=== PATIENT | female | born 1950 | race Caucasian/White ===

== ENCOUNTER → 2016-06-15 | Day surgery (SDC) | payer MEDICARE ==
[~2016-06-15] MED LIST: BACITRACIN OINT 1 EACH PACKET TOPICAL ONE; LIDOCAINE 1% INJ 10MG/ML (20 ML MDV) ONE; LIDOCAINE 1%-EPI 1:100,000 20 ML VIAL ONE; SODIUM BICARB 4% 5 ML VIAL (0.48 MEQ/ML) ONE
--- NOTE | 2016-06-15 13:19 | USB ---
EXAMINATION TYPE: US biopsy breast VAD LT DATE OF EXAM: 06/15/2016 1:14 PM CLINICAL HISTORY: US. Abnormal ultrasound TECHNIQUE: Ultrasound guided core biopsy of left breast. COMPARISON: Previous ultrasound dated 05/18/2016. FINDINGS: The procedure of ultrasound guided core biopsy was explained to the patient. Benefits, alternatives, and risks were discussed. An informed consent was then obtained. The patient was placed in supine positioning for imaging and for the procedure. The overlying skin was prepped and draped in usual sterile fashion. Lidocaine buffered with bicarbonate with and without epinephrine was used as anesthetic into the skin and subcutaneous tissue up to area of concern in the 3: 00 position of the left breast. Under ultrasound guidance, a 12-gauge vacuum assisted biopsy gun device was used to obtain 5 core samples. Following this, a biopsy clip was left in lesion. The patient tolerated the procedure well without any immediate complication. The patient was kept in the radiology department for short stay after the procedure and then discharged home in stable condition. Estimated blood loss was less than 1 cc. IMPRESSION: Successful, uncomplicated ultrasound guided core biopsy of area of concern in the left breast, full pathology results to follow. Pathology Results: Benign BREAST, LEFT, CORE BIOPSY: BENIGN BREAST WITH FIBROCYSTIC CHANGES INCLUDING FIBROSIS AND SMALL CYSTS. SEE NOTE. Recommendation Follow up ultrasound of the left breast in 6 months. MTDD
== END ==
LOC: RADUSWWP 12:07
PROVIDERS: ATTEND Surgery
DX: N63 Unspecified lump in breast (principal); N60.32 Fibrosclerosis of left breast; N64.89 Other specified disorders of breast; Z88.0 Allergy status to penicillin
CPT/HCPCS: 88305; 19083; A4648; J2001

== ENCOUNTER → 2016-12-21 | Outpatient (CLI) | payer MEDICARE ==
--- NOTE | 2016-12-21 14:13 | MM ---
Reason for exam: follow-up at short interval from prior study. Last mammogram was performed 7 months ago. History: Patient is postmenopausal. Family history of breast cancer in paternal cousin at age 35. Benign US biopsy breast VAD LT of the left breast, June 15, 2016. Benign excisional biopsy of the left breast, October 02, 2006. Ultrasound-guided core biopsy of the left breast, April 30, 2002. Benign excisional biopsy of the left breast, June 02, 2000. Cyst aspiration of the left breast. 2 cyst aspirations of the right breast. Took estrogen for 7 years beginning at age 51. Took progesterone for 7 years beginning at age 51. Physical Findings: Nurse Summary: 1 x 2cm nodule in the left breast at scar (nurse ts). MG 3D Diag Mammo W/Cad LT CC and MLO view(s) were taken of the left breast. Prior study comparison: May 18, 2016, left breast MG 3d work up w/cad LT. November 04, 2014, bilateral MG screening mammo w CAD. October 11, 2013, bilateral MG screening mammo w CAD. The breast tissue is heterogeneously dense. This may lower the sensitivity of mammography. No significant new findings when compared with previous films. These results were verbally communicated with the patient and result sheet given to the patient on 12/21/16. ASSESSMENT: Benign, BI-RAD 2 RECOMMENDATION: Follow-up diagnostic mammogram of both breasts in 5 months. Back on schedule for April 2017.
== END | disposition home or self-care (01) ==
LOC: RADMAMWWP 12:43
PROVIDERS: ATTEND Surgery
DX: R92.8 Other abnormal and inconclusive findings on diagnostic imaging of breast (principal)
CPT/HCPCS: G0206; G0279

== ENCOUNTER → 2017-07-05 | Outpatient (CLI) | payer MEDICARE ==
--- NOTE | 2017-07-05 14:21 | MM ---
Reason for exam: additional evaluation requested from prior study. Last mammogram was performed 6 months ago. History: Patient is postmenopausal. Family history of breast cancer in paternal cousin at age 35. Benign US biopsy breast VAD LT of the left breast, June 15, 2016. Benign excisional biopsy of the left breast, October 02, 2006. Ultrasound-guided core biopsy of the left breast, April 30, 2002. Benign excisional biopsy of the left breast, June 02, 2000. Cyst aspiration of the left breast. 2 cyst aspirations of the right breast. Took estrogen for 7 years beginning at age 51. Took progesterone for 7 years beginning at age 51. Physical Findings: Nurse did not find any significant physical abnormalities on exam. MG 3D Diag Mammo W/Cad TIFFANY Bilateral CC and MLO view(s) were taken. XCCL and LM view(s) were taken of the left breast. Prior study comparison: December 21, 2016, left breast MG 3d diag mammo w/cad LT. May 18, 2016, left breast MG 3d work up w/cad LT. Previous mammotome biopsy within the left breast. Focal asymmetry at marked BB, stable from 12/2016. No significant new findings when compared with previous films. These results were verbally communicated with the patient and result sheet given to the patient on 07/05/17. ASSESSMENT: Benign, BI-RAD 2 RECOMMENDATION: Routine screening mammogram of both breasts in 1 year.
== END | disposition home or self-care (01) ==
LOC: RADMAMWWP 12:40
PROVIDERS: ATTEND Surgery
DX: R92.8 Other abnormal and inconclusive findings on diagnostic imaging of breast (principal)
CPT/HCPCS: 77066; G0279

== ENCOUNTER → 2018-09-05 | Outpatient (CLI) | payer MEDICARE ==
--- NOTE | 2018-09-06 08:24 | MM ---
Reason for exam: additional evaluation requested from prior study. Last mammogram was performed 1 year and 2 months ago. History: Patient is postmenopausal. Family history of breast cancer in paternal cousin at age 35. Benign US biopsy breast VAD LT of the left breast, June 15, 2016. Benign excisional biopsy of the left breast, October 02, 2006. Ultrasound-guided core biopsy of the left breast, April 30, 2002. Benign excisional biopsy of the left breast, June 02, 2000. Cyst aspiration of the left breast. 2 cyst aspirations of the right breast. Took estrogen for 7 years beginning at age 51. Took progesterone for 7 years beginning at age 51. Physical Findings: Nurse did not find any significant physical abnormalities on exam. MG 3D Diag Mammo W/Cad TIFFANY Bilateral CC and MLO view(s) were taken. XCCL view(s) were taken of the left breast. Prior study comparison: July 05, 2017, bilateral MG 3d diag mammo w/cad TIFFANY. December 21, 2016, left breast MG 3d diag mammo w/cad LT. The breast tissue is heterogeneously dense. This may lower the sensitivity of mammography. There is chronic nodularity in the left breast, superimposed on the dense axillary tail tissue and also laterally at the coil clip. These results were verbally communicated with the patient and result sheet given to the patient on 09/05/18. ASSESSMENT: Benign, BI-RAD 2 RECOMMENDATION: Routine screening mammogram of both breasts in 1 year.
== END | disposition home or self-care (01) ==
LOC: RADMAMWWP 12:42
PROVIDERS: ATTEND Family Medicine
DX: R92.8 Other abnormal and inconclusive findings on diagnostic imaging of breast (principal)
CPT/HCPCS: 77066; G0279; 77062

== ENCOUNTER → 2019-11-13 | Outpatient (CLI) | payer MEDICARE ==
--- NOTE | 2019-11-19 10:07 | MM ---
Reason for exam: screening (asymptomatic). Last mammogram was performed 1 year and 2 months ago. History: Patient is postmenopausal. Family history of breast cancer in paternal cousin at age 35. Benign US biopsy breast VAD LT of the left breast, June 15, 2016. Benign excisional biopsy of the left breast, October 02, 2006. Ultrasound-guided core biopsy of the left breast, April 30, 2002. Benign excisional biopsy of the left breast, June 02, 2000. Cyst aspiration of the left breast. 2 cyst aspirations of the right breast. Took estrogen for 12 years beginning at age 51. Took progesterone for 12 years beginning at age 51. Physical Findings: A clinical breast exam by your physician is recommended on an annual basis and results should be correlated with mammographic findings. MG 3D Screening Mammo W/Cad Bilateral CC, MLO, and XCCL view(s) were taken. Prior study comparison: September 05, 2018, bilateral MG 3d diag mammo w/cad TIFFANY. July 05, 2017, bilateral MG 3d diag mammo w/cad TIFFANY. The breast tissue is heterogeneously dense. This may lower the sensitivity of mammography. Previous mammotome biopsy in the left breast. Focal asymmetry left MLO view. This finding is changed when compared with previous exams. ASSESSMENT: Incomplete: need additional imaging evaluation, BI-RAD 0 RECOMMENDATION: Special view mammogram of the left breast. If lesion persists on supplemental views, image directed ultrasound is recommended. [facility] will attempt to contact patient to return for supplemental views and ultrasound if indicated.
== END | disposition home or self-care (01) ==
LOC: RADMAMWWP 13:14
PROVIDERS: ATTEND Family Medicine
DX: Z12.31 Encounter for screening mammogram for malignant neoplasm of breast (principal)
CPT/HCPCS: 77063; 77067

== ENCOUNTER → 2019-11-28 | Outpatient (CLI) | payer MEDICARE ==
--- NOTE | 2019-11-28 09:31 | MM ---
Reason for exam: additional evaluation requested from abnormal screening. Last mammogram was performed less than 1 month ago. History: Patient is postmenopausal. Family history of breast cancer in paternal cousin at age 35. Benign US biopsy breast VAD LT of the left breast, June 15, 2016. Benign excisional biopsy of the left breast, October 02, 2006. Ultrasound-guided core biopsy of the left breast, April 30, 2002. Benign excisional biopsy of the left breast, June 02, 2000. Cyst aspiration of the left breast. 2 cyst aspirations of the right breast. Took estrogen for 12 years beginning at age 51. Took progesterone for 12 years beginning at age 51. Physical Findings: Nurse did not find any significant physical abnormalities on exam. MG 3D Work Up W/Cad LT ML and spot compression MLO view(s) were taken of the left breast. Prior study comparison: November 13, 2019, bilateral MG 3d screening mammo w/cad. September 05, 2018, bilateral MG 3d diag mammo w/cad TIFFANY. The breast tissue is extremely dense which could obscure a lesion on mammography. Finding: Architectural distortion in the posterior position of the left breast consistent with known lumpectomy changes. Previous mammotome biopsy in the left breast. Asymmetric breast tissue in the left. No distinct lesion persists left breast. These results were verbally communicated with the patient and result sheet given to the patient on 11/28/19. ASSESSMENT: Benign, BI-RAD 2 RECOMMENDATION: Return to routine screening mammogram schedule for both breasts.
== END | disposition home or self-care (01) ==
LOC: RADMAMWWP 08:20
PROVIDERS: ATTEND Family Medicine
DX: R92.8 Other abnormal and inconclusive findings on diagnostic imaging of breast (principal)
CPT/HCPCS: 77065; G0279; 77061

== ENCOUNTER → 2020-06-15 | Day surgery (SDC) | payer MEDICARE ==
[2020-06-10 11:33] VITALS: BMI 20.2
[~2020-06-15] MED LIST changes: -BACITRACIN OINT 1 EACH PACKET TOPICAL ONE; +LACTATED RINGERS 1,000 ML IV ONE; +LIDOCAINE 1% (10MG/ML) FOR IV START INTRADERMA ONE; -LIDOCAINE 1%-EPI 1:100,000 20 ML VIAL ONE; +PROPOFOL 10 MG/ML 20 ML VIAL IV ONE; -SODIUM BICARB 4% 5 ML VIAL (0.48 MEQ/ML) ONE
[2020-06-15 08:07] VITALS: TEMP 97.8
--- NOTE | 2020-06-15 09:57 | P.GSHP ---
History of Present Illness H&P Date: 06/15/20 Chief Complaint: Constipation This a 69-year-old female who presents today for colonoscopy. She's had issues constipation. She has complaints of rectal prolapse. Past Medical History Past Medical History: Hypertension, Osteoarthritis (OA) Additional Past Medical History / Comment(s): DDD, chronic back pain, History of Any Multi-Drug Resistant Organisms: None Reported Past Surgical History: Back Surgery, Breast Surgery, Section, Joint Replacement Additional Past Surgical History / Comment(s): L breast biopsies X2 AND MARISOL MPECTOMIES. PREVIOUS BACK SURGERY x2- laminectomy, 2014 decompression, L4-5 fusion and mesh inserted, Total hip replacement of right . EYELID SX, DENTAL IMPLANTS Past Anesthesia/Blood Transfusion Reactions: No Reported Reaction Smoking Status: Never smoker - Past Family History Father Family Medical History: CVA/TIA, Hypertension Additional Family Medical History / Comment(s): FATHER AT AGE 72. HE HAD HX ALSO OF ETOH ABUSE AND SMOKING. Mother Family Medical History: Hypertension Additional Family Medical History / Comment(s): MOTHER AT AGE 90 YRS. Medications and Allergies Home Medications Medication Instructions Recorded Confirmed Type Cetirizine HCl [Zyrtec] 10 mg PO DAILY PRN 03/19/14 06/10/20 History Alendronate Sodium 70 mg PO ANGELES 06/02/15 06/10/20 History Calcium Carbonate/Vitamin D3 2 each PO DAILY 06/02/15 06/10/20 History [Calcium 600 + Vit D Tablet] Cyanocobalamin [Vitamin B-12] 500 mcg PO DAILY 06/02/15 06/10/20 History Fish Oil/Dha/Epa [Fish Oil 1,200 1 each PO DAILY 06/02/15 06/10/20 History mg Fish Oil] Multivit-Min/FA/Lycopen/Lutein 1 each PO DAILY 06/02/15 06/10/20 History [Centrum Silver Tablet] Bisoprolol-Hctz 5-6.25 mg [Ziac 1 tab PO 1900 06/10/20 06/10/20 History 5-6.25 MG] Levothyroxine Sodium [Synthroid] 50 mcg PO DAILY 06/10/20 06/10/20 History amLODIPine [Norvasc] 5 mg PO DAILY 06/10/20 06/10/20 History lisinopriL [Zestril] 40 mg PO DAILY 06/10/20 06/10/20 History Allergies Allergy/AdvReac Type Severity Reaction Status Date / Time Penicillins Allergy Severe Rash/Hives Verified 06/10/20 10:46 Surgical - Exam Vital Signs Temp Pulse Resp BP Pulse Ox 97.8 F 75 18 145/73 99 06/15/20 08:05 06/15/20 08:05 06/15/20 08:05 06/15/20 08:05 06/15/20 08:05 - General well developed, well nourished, no distress - Eyes PERRL - ENT normal pinna - Neck no masses - Respiratory normal expansion - Cardiovascular Rhythm: regular - Abdomen Abdomen: soft, non tender Assessment and Plan Assessment: History of constipation. will perform colonoscopy.
--- NOTE | 2020-06-15 09:59 | P.OP ---
Date of Procedure: 06/15/20 Preoperative Diagnosis: Constipation Postoperative Diagnosis: Internal/external hemorrhoids Procedure(s) Performed: Colonoscopy Anesthesia: MAC Surgeon: Scott Santizo Pathology: none sent Condition: stable Disposition: PACU Description of Procedure: Patient's placed on the endoscopy table in the lateral position. He received IV sedation. Digital rectal exam was performed which revealed internal/external hemorrhoids. The flexible colonoscope was then placed patient anus and passed throughout the entire colon. The ileocecal valve was visualized. The cecum, ascending and transverse colon appeared normal. The descending; appeared normal. Scope was then brought back the rectum this appeared normal. Scope withdrawn patient.
[2020-06-15 10:00] VITALS: RESP 16
[2020-06-15 10:28] VITALS: BP 136/71; PULSE 61
== END | disposition home or self-care (01) ==
LOC: ORWHC2ENDO 07:48
PROVIDERS: ATTEND Surgery
DX: K59.00 Constipation, unspecified (principal); K64.8 Other hemorrhoids; K64.4 Residual hemorrhoidal skin tags; I10 Essential (primary) hypertension; M19.90 Unspecified osteoarthritis, unspecified site; M51.9 Unspecified thoracic, thoracolumbar and lumbosacral intervertebral disc disorder; G89.29 Other chronic pain; M54.9 Dorsalgia, unspecified; Z98.890 Other specified postprocedural states; Z96.641 Presence of right artificial hip joint; Z98.1 Arthrodesis status; Z96.5 Presence of tooth-root and mandibular implants; Z79.83 Long term (current) use of bisphosphonates; Z79.899 Other long term (current) drug therapy; Z79.890 Hormone replacement therapy; Z88.0 Allergy status to penicillin; Z82.3 Family history of stroke; Z82.49 Family history of ischemic heart disease and other diseases of the circulatory system; Z81.1 Family history of alcohol abuse and dependence; Z81.2 Family history of tobacco abuse and dependence
CPT/HCPCS: 45378; J2001; J2704

== ENCOUNTER → 2020-08-01 | Outpatient (CLI) | payer MEDICARE ==
--- NOTE | 2020-08-01 16:30 | MR ---
EXAMINATION TYPE: MR lumbar spine wo con DATE OF EXAM: 08/01/2020 COMPARISON: 11/19/2012 HISTORY: Left hip pain x 6 months Multiplanar multiecho imaging of the lumbar spine was performed without contrast. Lumbar vertebra have normal alignment. There is metal artifact from posterior fusion surgery from L4 to S1. There is rudimentary disc at S1-S2. There is posterior small disc bulge at L3-4. There is hype rtrophic mild facet arthropathy at L3-4. There is some lateral recess stenosis. There is no compressi on fracture. I see no focal bone destruction. Exam limited by metal artifact. I see no definite neura l foraminal impingement. There is no lumbar paraspinal mass. IMPRESSION: Multilevel fusion surgery. Mild lateral recess stenosis at L3-4 with small posterior L3-4 disc bulgin g and herniation. No fracture..
== END | disposition home or self-care (01) ==
LOC: RADMRIMAIN 13:41
PROVIDERS: ATTEND Family Medicine
DX: M48.061 Spinal stenosis, lumbar region without neurogenic claudication (principal); M51.26 Other intervertebral disc displacement, lumbar region; Z98.1 Arthrodesis status
CPT/HCPCS: 72148

== ENCOUNTER → 2020-08-12 | Outpatient (CLI) | payer MEDICARE ==
--- NOTE | 2020-08-12 11:50 | P.PAINCN ---
History of Present Illness - Reason for Consult Consult date: 08/12/20 - History of Present Illness This is a 69-year-old patient referred by Dr. Che with a chief complaint of chronic pain in low back. She has a long history of back interventions. She had L4 to S1 fusion in March 2014. She had multiple epidural injections prior to that and after that. She also had a laminectomy in the year 2012 as well as a right hip replacement 2015. Most recent epidural injection was done on the right side at L5-S1 in 2015 which she said helped considerably and is still helping her right side to this day. Pain is currently located in the left hip area with radiation down the anterior aspect of the leg to the foot involving the top of the foot. This pain has been present for about 6 months and is not getting better. Pain is described as sharp and stabbing and worse with activity. She also has difficulty going up stairs and really the only thing that helps is resting and laying down. Pain is currently 910, specified, worse than. He currently really only takes [id number] medications which doesn't help a lot. . Patient denies adverse drug effects from medications. Patient also denies new-onset weakness, bowel/bladder incontinence, or any other signs or symptoms of cauda equina syndrome. There are no signs of acute intoxication, and no indications of medication diversion or overuse. In addition to above, 13-point review of systems is also negative for chest pain, shortness of breath, changes in vision, changes in hearing, new onset weakness, abdominal pain, diarrhea, extreme fatigue, malaise, fever, skin changes, homicidal or suicidal ideation, or bowel or bladder incontinence. Physical exam: Vital Signs: Reviewed in EMR GENERAL: Well appearing, in no acute distress PSYCH: Mood and affect is appropriate. Awake, alert, and oriented SKIN: Skin color, texture, turgor normal, no rashes or lesions HEENT: Normocephalic, atraumatic. EOM intact CV: No pedal edema RESP: Respirations are unlabored, no audible wheezing GI: Abdomen non-distended MUSCULOSKELETAL: 4/5 strength L EHL and dorsiflexion. Muscle atrophy noted in the lumbar spine. Well healed surgical scar Lumbar spine: Straight leg raising in the sitting position is negative for radicular pain. No pain to palpation over the lumbar spine and paraspinous muscles. Negative for pain with facet loading and back extension/rotation. FADIR negative bilaterally Normal range of motion without pain reproduction Extremities: Peripheral joint ROM is full and pain free without obvious instability or laxity in all four extremities. No edema or skin discolorations noted. Gait: Gait is slow and with short steps NEUR: Bilateral upper and lower extremity coordination and muscle stretch reflexes are physiologic and symmetric. Negative clonus. No loss of sensation is noted. Cranial nerves are grossly intact. Imaging: Lumbar MRI 07/2019 There is normal alignment of the lumbar vertebral bodies. There is a posterior fusion surgery from L4 to S1. There is a small posterior disc bulge at L3-L4. There is mild hypertrophic facet arthropathy with some lateral recess stenosis at L3-L4. Assessment: 1. Lumbar spinal stenosis 2. Multiple back surgeries Plan: 1. Explanation: Diagnoses, prognoses, and multiple treatment options including but not limited to physical therapy, interventional therapies, medication management and surgery were discussed with the patient and all questions were answered to the patient's satisfaction. 2. Investigations: Consider EMG in the future if epidural does not work 3. Counseling: The patient was counseled for 3 minutes on SMOKING CESSATION, BODY MASS INDEX, EXERCISE. Specifically, the patient was instructed regarding the importance of smoking cessation, weight control, and exercise in the context of both chronic pain and overall health. 4. Procedures: We will perform a left-sided L5-S1 transforaminal epidural. I do recognize that she has a fusion at this level, however she apparently had a transforaminal at this level on the right side after her fusion by Dr. Blas. If there is inadequate visualization at this space, consider doing an L3-L4 transforaminal epidural steroid injection as her pain is also in the L3-4 hallie matome 5. Consultations: If these injections do not work, we can consider left-sided hip injection. She has not been evaluated for hip replacement, she did have her hip replacement on the right side. 6. Medications: As needed 7. Disposition: for above procedure I spent 45 minutes reviewing the patient's chart, going over patient's medications, talking to the patient, and discussing plan of care Past Medical History Past Medical History: Hypertension Additional Past Medical History / Comment(s): DDD, chronic back pain, History of Any Multi-Drug Resistant Organisms: None Reported Past Surgical History: Back Surgery, Breast Surgery, Section, Joint Replacement Additional Past Surgical History / Comment(s): L breast biopsies X2 AND LUMPECTOMIES. PREVIOUS BACK SURGERY x2- laminectomy, 2014 decompression, L4-5 fusion and mesh inserted, Total hip replacement of right . EYELID SX, DENTAL IMPLANTS Past Anesthesia/Blood Transfusion Reactions: No Reported Reaction Smoking Status: Never smoker - Past Family History Father Family Medical History: CVA/TIA, Hypertension Additional Family Medical History / Comment(s): FATHER AT AGE 72. HE HAD HX ALSO OF ETOH ABUSE AND SMOKING. Mother Family Medical History: Hypertension Additional Family Medical History / Comment(s): MOTHER AT AGE 90 YRS. Medications and Allergies Home Medications Medication Instructions Recorded Confirmed Type Cetirizine HCl [Zyrtec] 10 mg PO DAILY PRN 03/19/14 08/10/20 History Alendronate Sodium 70 mg PO ANGELES 06/02/15 08/10/20 History Calcium Carbonate/Vitamin D3 2 each PO DAILY 06/02/15 08/10/20 History [Calcium 600 + Vit D Tablet] Cyanocobalamin [Vitamin B-12] 500 mcg PO DAILY 06/02/15 08/10/20 History Fish Oil/Dha/Epa [Fish Oil 1,200 1 each PO DAILY 06/02/15 08/10/20 History mg Fish Oil] Multivit-Min/FA/Lycopen/Lutein 1 each PO DAILY 06/02/15 08/10/20 History [Centrum Silver Tablet] Levothyroxine Sodium [Synthroid] 50 mcg PO DAILY 06/10/20 08/10/20 History amLODIPine [Norvasc] 5 mg PO DAILY 06/10/20 08/10/20 History lisinopriL [Zestril] 40 mg PO DAILY 06/10/20 08/10/20 History Acetaminophen [Tylenol Arthritis] 650 mg PO DIRECTED PRN 08/10/20 08/10/20 History Allergies Allergy/AdvReac Type Severity Reaction Status Date / Time Penicillins Allergy Severe Rash/Hives Verified 08/10/20 14:29 PQRS Measure Charge Sheet PQRS Narrative: Smoking Status Never smoker Pain Intensity [Left Hip] 9 Scale Used Numeric (1 - 10) Home Medications: Ambulatory Orders Cetirizine HCl [Zyrtec] 10 mg PO DAILY PRN 03/19/14 Alendronate Sodium 70 mg PO ANGELES 06/02/15 Calcium Carbonate/Vitamin D3 [Calcium 600 + Vit D Tablet] 2 each PO DAILY 06/02/15 Cyanocobalamin [Vitamin B-12] 500 mcg PO DAILY 06/02/15 Fish Oil/Dha/Epa [Fish Oil 1,200 mg Fish Oil] 1 each PO DAILY 06/02/15 Multivit-Min/FA/Lycopen/Lutein [Centrum Silver Tablet] 1 each PO DAILY 06/02/15 Levothyroxine Sodium [Synthroid] 50 mcg PO DAILY 06/10/20 amLODIPine [Norvasc] 5 mg PO DAILY 06/10/20 lisinopriL [Zestril] 40 mg PO DAILY 06/10/20 Acetaminophen [Tylenol Arthritis] 650 mg PO DIRECTED PRN 08/10/20
== END ==
CPT/HCPCS: 99211

== ENCOUNTER 2020-09-08 06:50 | Day surgery (SDC) | payer MEDICARE ==
[2020-09-07 08:30] VITALS: BMI 20.7
[~2020-09-08 06:50] MED LIST changes: -LACTATED RINGERS 1,000 ML IV ONE; +LACTATED RINGERS 1,000 ML IV SCH; -LIDOCAINE 1% (10MG/ML) FOR IV START INTRADERMA ONE; -LIDOCAINE 1% INJ 10MG/ML (20 ML MDV) ONE; -PROPOFOL 10 MG/ML 20 ML VIAL IV ONE
[2020-09-08 07:23] VITALS: RESP 16; TEMP 97.4
[2020-09-08] MEDS ORDERED: LIDOCAINE 1% (10MG/ML) FOR IV START INTRADERMA ONE (07:33)
[2020-09-08] MEDS ORDERED: DEXAMETHASONE SOD PHOSPHATE 10 MG/ML 1 ML VIAL ONE (07:42)
[2020-09-08] MEDS ORDERED: IOPAMIDOL M200 10 ML VIAL ONE (07:42)
[2020-09-08] MEDS ORDERED: LIDOCAINE 1% INJ 10MG/ML (20 ML MDV) ONE (07:42)
[2020-09-08] MEDS ORDERED: MIDAZOLAM 2 MG/2 ML VIAL ONE (07:42)
[2020-09-08] MEDS ORDERED: fentaNYL (PF) 50 MCG/ML 2 ML AMP ONE (07:42)
[2020-09-08] MEDS ORDERED: IV FLUID CONTINUATION 1,000 ML IV ONE (08:03)
--- NOTE | 2020-09-08 08:03 | P.PCN ---
Date of Procedure: 09/08/20 Surgeon: Edvin Mckeon Pathology: none sent Condition: stable Disposition: PACU Description of Procedure: PREOPERATIVE DIAGNOSIS: Lumbar radiculopathy POSTOPERATIVE DIAGNOSIS: Lumbar radiculopathy PROCEDURE 1. Transforaminal epidural steroid injection under fluoroscopic guidance at L2-3 left 2. Lumbar epidurogram. SURGEON: Edvin Mckeon MD [employer]: ANESTHESIA: Local with 1% lidocaine; IV sedation with Versed and fentanyl. EBL: Minimal PROCEDURE INDICATION: The patient with low back pain and radiculopathy symptoms unresponsive to conservative treatment. The patient has hardware from L3 to S1 which makes accessing the L3-4 and L5-S1 foramens very difficult. I decided to do the procedure on the L2-L3 level on the left side especially that the patient has symptoms that correlate with this level too. PROCEDURE DESCRIPTION / TECHNIQUE: The patient was seen and identified in the preoperative area. Risks, benefits, complications, and alternatives were discussed with the patient. The patient agreed to proceed with the procedure and signed the consent. IV was started, and vital signs were stable. Patient was taken to the OR and time out was completed. The patient was placed in the prone position on procedure table and a pillow was placed under the abdomen to reduce lumbar lordosis. The lumbosacral area was prepped and draped in the usual sterile fashion. Critical pause was taken. Vital signs were closely monitored during the procedure. Conscious sedation was used during the procedure to decrease patients anxiety. The vertebral body of the lumbar vertebra L2 was squared off by tilting the C-arm cephalad then the C-arm was tilted to the oblique position and the target point was at the 6 o'clock position of the pedicle of then skin and deeper tissues were localized with 1% lidocaine. Subsequently, a 22-gauge 3.5- inch spinal needle was advanced under a tunneled view fluoroscopic guidance just underneath the chin of the Tommy dog at the . Under lateral fluoroscopy, the needle was then advanced to the middle of the upper one third of the foramen between( L2-3). After negative aspiration of CSF and blood and with no paresthesias, 1 mL of omnipaque contrast dye was injected excellent epidurogram and outlining of the L nerve root was identified. Subsequently, 2 mL of block solution containing 10 mg of Decadron and 1 mL of Lidocaine 1% PF was injected. Needle was removed and the same . At the end of the procedure, skin was cleansed, and bandages were applied. COMPLICATIONS: None COMMENTS: DISPOSITION / PLANS: The patient was placed in a supine position and transferred to the recovery area in a stable condition for observation. There was no evidence of lower extremity motor or sensory deficit after the procedure. Patient was discharged from the recovery room after meeting discharge criteria. Home discharge instructions were given to the patient by the staff.
[2020-09-08 08:23] VITALS: BP 160/80; PULSE 65
--- NOTE | 2020-09-08 13:42 | FL ---
Fluoroscopy HISTORY: Pain 12 seconds fluoroscopy time supplied to the referring clinician. 2 intraoperative C-arm images docum ent the procedure. See dictated report from anesthesia.
== END 2020-09-08 08:37 | disposition home or self-care (01) ==
LOC: ORPAIN 06:50
PROVIDERS: ATTEND Anesthesiology
DX: M54.16 Radiculopathy, lumbar region (principal); Z88.0 Allergy status to penicillin; I10 Essential (primary) hypertension
CPT/HCPCS: 64483; J2250; J1100; J2001 ×2; J3010; Q9966; 99152

== ENCOUNTER → 2020-09-30 | Outpatient (CLI) | payer MEDICARE ==
[2020-09-30 09:09] VITALS: BP 168/75; PULSE 60; RESP 18; TEMP 98
--- NOTE | 2020-09-30 09:26 | P.PN ---
Subjective Progress Note Date: 09/30/20 This is 69 years old female, with a chronic history of severe low back pain with radiation to the left lower extremity, associated with some numbness left lower extremity, patient had lumbar fusion surgery done at a L4 to S1, and she had a recent MRI done showed she had lumbar bulging disc disease at L3 4, recently we have known left-sided transforaminal epidural steroid injection at the L2-3 level, she had minimal benefit from it, she continued to have severe pain with rotation to the left lower extremity, the pain is constant and increases with any activity, she denies any motor or sensory deficit she denies any fever or night sweats, no change in the bowel movement or urination Objective - Vital Signs Vital signs: Vital Signs Temp 98.0 F 09/30/20 09:05 Pulse 60 09/30/20 09:05 Resp 18 09/30/20 09:05 BP 168/75 09/30/20 09:05 Pulse Ox 99 09/30/20 09:05 - Exam Physical Examinations : -Constitutiona : Cooperative , not in acute distress . -HEENT : nech : supple , no Lymphadenopathy , normal thyroid size . : eyes : no ptosis , no icterus, no photophobia . - neurologic : Cranial nerve II to XII intact , no focal neurological deffecit . -psychatric : alert , oriented X 3 , appropriate affect , intact judgment and insight . -Lymphatic : no Lymphadenopathy . - musculoskeltal : Lumber spine moter stegnth lower extremities ,thigh and legs 5/5 Right side , 5/5 Left side deep tendon reflexes : normal Knee Jerk , normal ankle Jerk lumber facet Loading Test = negative bilaterally Range of motion of the lumbar spine Flexion 30 degrees, extension 10 degrees strait leg raising test = negative bilaterally Fabere test= negative bilaterally . Assessment and Plan Plan: Assessment and plan=1-lumbar radiculopathy. 2-lumbar degenerative disc disease. 3-history of lumbar laminectomy and fusion surgery. Patient could benefit from left-sided transforaminal epidural steroid injection at L2-3, and at L3 4 - PQRS measures = - Patient's medications are documented in the chart. -Tobacco use is negative and counseling.Given. -Patient's has received pneumococcal vaccine. -Advanced care planning discussed, patient not eligible. -Opiate contract not signed. -Pain positive and follow-up visit/procedure is scheduled. -Patient's blood pressure measured [168/75 ] , and documented in the record ,and patient will follow up with the primary care. -Patient's weight was measured and body mass index [ 20,7 ] above the, normal limits and counseling was done. and patient instructed to follow-up with the primary care physician. -Patient was not identified as an unhealthy alcohol user Time with Patient: Less than 30
== END ==
LOC: PNWHC3 08:29
PROVIDERS: ATTEND Specialist
DX: M51.16 Intervertebral disc disorders with radiculopathy, lumbar region (principal); M96.1 Postlaminectomy syndrome, not elsewhere classified
CPT/HCPCS: 99211

== ENCOUNTER 2020-11-17 13:09 | Day surgery (SDC) | payer MEDICARE ==
[2020-11-13 15:14] VITALS: BMI 20.7
[2020-11-17 13:21] VITALS: TEMP 98.4
[2020-11-17] MEDS ORDERED: LACTATED RINGERS 1,000 ML IV ONE (13:21)
[2020-11-17] MEDS ORDERED: IOPAMIDOL M200 10 ML VIAL ONE (13:29)
[2020-11-17] MEDS ORDERED: fentaNYL (PF) 50 MCG/ML 2 ML AMP ONE (13:29)
[2020-11-17] MEDS ORDERED: MIDAZOLAM 2 MG/2 ML VIAL ONE (13:29)
[2020-11-17] MEDS ORDERED: methylPREDNISolone ACETATE 40 MG/ML 1 ML VIAL ONE (13:29)
--- NOTE | 2020-11-17 13:48 | P.PCN ---
Date of Procedure: 11/17/20 Procedure(s) Performed: PREOPERATIVE DIAGNOSIS: 1-Lumbar radiculopathy . 2-lumbar degenerative disc disease. 3-postlaminectomy pain syndrome lumbar area POSTOPERATIVE DIAGNOSIS: Same as preoperative diagnoses. PROCEDURE 1. Transforaminal epidural steroid injection under fluoroscopic guidance at left L2-3 ,and L3-4 level. (Fluoroscopy images stored on file in the radiology Department ) 2. Lumbar epidurogram . ANESTHESIA: Local with 1% lidocaine 3 ml , moderate sedation with intravenous Versed 2 mg and fentanyle 50 micrograms. EBL: Minimal PROCEDURE INDICATION: The patient with low back pain and radiculopathy symptoms unresponsive to conservative treatment. PROCEDURE DESCRIPTION / TECHNIQUE: The patient was seen and identified in the preoperative area. Risks, benefits, complications, and alternatives were discussed with the patient. The patient agreed to proceed with the procedure and signed the consent. IV was started, and vital signs were stable. Patient was taken to the OR and time out was completed. The patient was placed in the prone position on procedure table and a pillow was placed under the abdomen to reduce lumbar lordosis. The lumbosacral area was prepped and draped in the usual sterile fashion. Critical pause was taken. Vital signs were closely monitored during the procedure. Conscious sedation was used during the procedure to decrease patient s anxiety. Using oblique fluoroscopy, the chin of the ``Tommy dog at left L2-3 level was identified, and the skin and deeper tissues just below was localized with 1% lidocaine. Subsequently, a 22-gauge 3.5-inch spinal needle was advanced under a tunneled view fluoroscopic guidance just underneath the chin of the ``Tommy dog at the left L2-3 Under lateral fluoroscopy, the needle was then advanced to the posterior border of the interforaminal space. After negative aspiration of CSF and blood and with no paresthesias, 1 mL Isovue 200 contrast dye was injected excellent epidurogram and outlining of the nerve root Subsequently, 3 mL of block solution containing 30 mg Depo-Medrol and 2 mL of 0.9% normal saline PF was injected. Needle was removed and the same procedure was repeated at the left L3-4 level (s). At the end of the procedure, skin was cleansed, and bandages were applied. COMPLICATIONS:none DISPOSITION / PLANS: The patient was placed in a supine position and transferred to the recovery area in a stable condition for observation. There was no evidence of lower extremity motor or sensory deficit after the procedure. Patient was discharged from the recovery room after meeting discharge criteria. Home discharge instructions were given to the patient by the staff. The patient was reexamined prior to discharge.
[2020-11-17 13:49] VITALS: RESP 16
--- NOTE | 2020-11-17 14:02 | FL ---
EXAMINATION TYPE: FL guided pain mgmt statistic DATE OF EXAM: 11/17/2020 HISTORY: Fluoroscopy time 8 seconds of fluoroscopy provided. IMPRESSION: 1. Fluoroscopy time.
[2020-11-17 14:03] VITALS: BP 174/84; PULSE 56
[2020-11-17] MEDS ORDERED: IV FLUID CONTINUATION 1,000 ML IV ONE (14:09)
== END 2020-11-17 14:19 | disposition home or self-care (01) ==
LOC: ORPAIN 13:09
PROVIDERS: ATTEND Specialist
DX: M96.1 Postlaminectomy syndrome, not elsewhere classified (principal); M51.16 Intervertebral disc disorders with radiculopathy, lumbar region; Z88.0 Allergy status to penicillin
CPT/HCPCS: 64483; 64484; J2250; J1030; J3010; Q9966; 99152

== ENCOUNTER → 2020-12-21 | Outpatient (CLI) | payer MEDICARE ==
--- NOTE | 2020-12-22 13:24 | MM ---
Reason for exam: screening (asymptomatic). Last mammogram was performed 1 year and 1 month ago. History: Patient is postmenopausal. Family history of breast cancer in paternal cousin at age 35. Benign US biopsy breast VAD LT of the left breast, June 15, 2016. Benign excisional biopsy of the left breast, October 02, 2006. Ultrasound-guided core biopsy of the left breast, April 30, 2002. Benign excisional biopsy of the left breast, June 02, 2000. Cyst aspiration of the left breast. 2 cyst aspirations of the right breast. Took estrogen for 12 years beginning at age 51. Took progesterone for 12 years beginning at age 51. Physical Findings: A clinical breast exam by your physician is recommended on an annual basis and results should be correlated with mammographic findings. MG 3D Screening Mammo W/Cad Bilateral CC and MLO view(s) were taken. Prior study comparison: November 28, 2019, left breast MG 3d work up w/cad LT. November 13, 2019, bilateral MG 3d screening mammo w/cad. The breast tissue is heterogeneously dense. This may lower the sensitivity of mammography. Left biopsy clip. ASSESSMENT: Benign, BI-RAD 2 RECOMMENDATION: Routine screening mammogram of both breasts in 1 year.
== END | disposition home or self-care (01) ==
LOC: RADMAMWWP 11:49
PROVIDERS: ATTEND Family Medicine
DX: Z12.31 Encounter for screening mammogram for malignant neoplasm of breast (principal); Z78.0 Asymptomatic menopausal state; Z80.3 Family history of malignant neoplasm of breast
CPT/HCPCS: 77063; 77067

== ENCOUNTER → 2020-12-24 | Outpatient (CLI) | payer MEDICARE ==
[2020-12-24 11:27] VITALS: BP 161/77; PULSE 68; RESP 18; TEMP 98.5
--- NOTE | 2020-12-24 11:56 | P.PN ---
Subjective Progress Note Date: 12/24/20 This is 70 years old female, with a chronic history of severe low back pain with radiation to the left lower extremity, associated with some numbness left lower extremity, patient had lumbar fusion surgery done at a L4 to S1, and she had a recent MRI done showed she had lumbar bulging disc disease at L3 4, lumbar facet arthropathy , recently we have done left-sided transforaminal epidural steroid injection at the L2-3 ,and L3-4 levels x2 , she had minimal benefit from it, she continued to have severe pain with rotation to the left lower extremity, the pain is constant and increases with any activity, she denies any motor or sensory deficit she denies any fever or night sweats, no change in the bowel movement or urination Physical Examinations : -Constitutiona : Cooperative , not in acute distress . -HEENT : nech : supple , no Lymphadenopathy , normal thyroid size . : eyes : no ptosis , no icterus, no photophobia . - neurologic : Cranial nerve II to XII intact , no focal neurological deffecit . -psychatric : alert , oriented X 3 , appropriate affect , intact judgment and insight . -Lymphatic : no Lymphadenopathy . - musculoskeltal : Lumber spine moter stegnth lower extremities ,thigh and legs 5/5 Right side , 5/5 Left side deep tendon reflexes : normal Knee Jerk , normal ankle Jerk lumber facet Loading Test = negative Right , positive left Range of motion of the lumbar spine Flexion 30 degrees, extension 10 degrees strait leg raising test = negative bilaterally Fabere test= negative bilaterally . Assessment and Plan Plan: Assessment and plan=1-lumbar radiculopathy. 2-lumbar degenerative disc disease. 3-history of lumbar laminectomy and fusion newton rgery. Patient had no benefit from left-sided transforaminal epidural steroid injection at L2-3, and at L3 4 Patient will be good candidate to have left side in branch block at L2, L3, L4 and possible RFA - PQRS measures = - Patient's medications are documented in the chart. -Tobacco use is negative and counseling.Given. -Patient's has received pneumococcal vaccine. -Advanced care planning discussed, patient not eligible. -Opiate contract not signed. -Pain positive and follow-up visit/procedure is scheduled. -Patient's blood pressure measured [161/77 ] , and documented in the record ,and patient will follow up with the primary care. -Patient's weight was measured and body mass index [ 20,7 ] above the, normal limits and counseling was done. and patient instructed to follow-up with the primary care physician. -Patient was not identified as an unhealthy alcohol user Objective - Vital Signs Vital signs: Vital Signs Temp 98.5 F 12/24/20 11:24 Pulse 68 12/24/20 11:24 Resp 18 12/24/20 11:24 BP 161/77 12/24/20 11:24 Pulse Ox 99 12/24/20 11:24
== END ==
LOC: PNWHC3 11:04
PROVIDERS: ATTEND Specialist
DX: M51.16 Intervertebral disc disorders with radiculopathy, lumbar region (principal); Z98.890 Other specified postprocedural states; Z92.3 Personal history of irradiation; Z88.0 Allergy status to penicillin
CPT/HCPCS: 99211

== ENCOUNTER 2021-01-15 13:05 | Day surgery (SDC) | payer MEDICARE ==
[2021-01-13 14:34] VITALS: BMI 20.9
[2021-01-15 13:31] VITALS: TEMP 97.2
[2021-01-15] MEDS ORDERED: methylPREDNISolone ACETATE 40 MG/ML 1 ML VIAL ONE (14:00)
[2021-01-15] MEDS ORDERED: ROPIVACAINE 5MG/ML 20ML VIAL ONE (14:00)
[2021-01-15] MEDS ORDERED: MIDAZOLAM 2 MG/2 ML VIAL ONE (14:00)
[2021-01-15] MEDS ORDERED: fentaNYL (PF) 50 MCG/ML 2 ML AMP ONE (14:00)
[2021-01-15] MEDS ORDERED: IV FLUID CONTINUATION 1,000 ML IV ONE ×2 (14:18)
--- NOTE | 2021-01-15 14:18 | P.PCN ---
Date of Procedure: 01/15/21 Procedure(s) Performed: PREOPERATIVE DIAGNOSIS : 1- Lumbar spondylosis with Facet Arthropathy without myelopathy . POSTOPERATIVE DIAGNOSIS: 1- Lumbar spondylosis with Facet Arthropathy without myelopathy . PROCEDURE: Diagnostic Left L2 , L3 , L4 medial branch block under fluoroscopy guidance(fluoroscopy images available in the radiology Department ) ( To target the facet joint between Left L3-4 ,L4-5 ) ANESTHESIA: Monitored anesthesia care as per anesthesia department.. EBL: Minimal COMPLICATION: None PROCEDURE INDICATION: Chronic low back pain secondary to Facet arthropathy unresponsive to conservative treatment. PROCEDURE DESCRIPTION: the patient was seen and identified in the preop holding area , risks and benefits and possible complications of the procedure and alternative were discussed with the patient, and the patient agreed to proceed with the procedure and signed the consent and vital signs monitored during the procedure and fluoroscopy was used to maximize the benefit and accuracy of the needle placement, and sedation was given to decrease patient anxiety, patient was taken to the procedure room and placed in prone position vital signs monitored in the back prepped with chlorhexidine X3 then under strict sterile technique using a right oblique fluoroscopy ,the junction of the transverse process and the superior articulating process of the Left L2 ,L3 , L4 , vertebra which corresponding to the fluoroscopy image of the eye of the Tommy dog on the block side for the medial branches and subsequently , after local infiltration of skin and subcu tissuies with Ropivacaine 0.5 % , one mL at each level ,then 22-gauge Quincke-type needles , 3 needle was used , each one of them placed at the junction of the base of the transverse process and the superior articular process at the appropriate level, and the needle was advanced until the periosteum contacted, needle placement confirmed with AP oblique and lateral view and after appropriate needle placement confirmed, and after negative aspiration for heme and CSF and there was no paresthesia 1-1/2 mL of Ropivacaine 0.5% mixed with 40 mg Depo-Medrol , then half mL injected at each level after negative aspiration the needle subsequently removed . At the end of the procedure and the needles removed and a bandage applied after the skin was cleaned the cleaning solution patient taken to recovery room in stable condition and monitors in the recovery room for 20-30 minutes and discharged home in stable condition after discharge criteria met and patient will follow up with the pain clinic in 2-4 weeks
--- NOTE | 2021-01-15 14:40 | FL ---
EXAMINATION TYPE: FL guided pain mgmt statistic DATE OF EXAM: 01/15/2021 HISTORY: Fluoroscopy time 18 seconds of fluoroscopy provided. IMPRESSION: 1. Fluoroscopy time.
[2021-01-15 14:53] VITALS: BP 172/78; PULSE 56; RESP 16
== END 2021-01-15 14:59 | disposition home or self-care (01) ==
LOC: ORPAIN 13:05
PROVIDERS: ATTEND Specialist
DX: G89.29 Other chronic pain (principal); M47.816 Spondylosis without myelopathy or radiculopathy, lumbar region; Z88.0 Allergy status to penicillin; I10 Essential (primary) hypertension; E07.9 Disorder of thyroid, unspecified; Z79.83 Long term (current) use of bisphosphonates; Z79.890 Hormone replacement therapy; Z79.899 Other long term (current) drug therapy
CPT/HCPCS: 64493; 64494; J2250; J1030; J3010; J2795

== ENCOUNTER → 2021-03-03 | Outpatient (CLI) | payer MEDICARE ==
[2021-03-03 12:22] VITALS: BP 170/83; PULSE 55; RESP 18; TEMP 97.7
--- NOTE | 2021-03-03 12:50 | P.PN ---
Subjective Progress Note Date: 03/03/21 This is 70 years old female, with a chronic history of severe low back pain with radiation to the left lower extremity, associated with some numbness left lower extremity, patient had lumbar fusion surgery done at a L4 to S1, and she had a recent MRI done showed she had lumbar bulging disc disease at L3 4, lumbar facet arthropathy , recently we have done left-sided transforaminal epidural steroid injection at the L2-3 ,and L3-4 levels x2 , she had minimal benefit from it, and a few weeks ago we did left-sided medial branch block lumbar area , she reported that she had 0 benefits from it (her VAS before the block was 8/10 , and it was 7/10 immediately after the medial branches block )she continued to have severe pain with rotation to the left lower extremity, the pain is constant and increases with any activity, she denies any motor or sensory deficit she denies any fever or night sweats, no change in the bowel movement or urination Physical Examinations : -Constitutiona : Cooperative , not in acute distress . -HEENT : nech : supple , no Lymphadenopathy , normal thyroid size . : eyes : no ptosis , no icterus, no photophobia . - neurologic : Cranial nerve II to XII intact , no focal neurological deffecit . -psychatric : alert , oriented X 3 , appropriate affect , intact judgment and insight . -Lymphatic : no Lymphadenopathy . - musculoskeltal : Lumber spine moter stegnth lower extremities ,thigh and legs 5/5 Right side , 5/5 Left side deep tendon reflexes : normal Knee Jerk , normal ankle Jerk lumber facet Loading Test = negative Right , positive left Range of motion of the lumbar spine Flexion 30 degrees, extension 10 degrees strait leg raising test = negative bilaterally Fabere test= negative bilaterally . Assessment and Plan Plan: Assessment and plan=1-lumbar radiculopathy. 2-lumbar degenerative disc disease. 3-history of lumbar laminectomy and fusion surgery. Patient had no benefit from left-sided transforaminal epidural steroid injection at L2-3, and at L3 4 Patient had no benefit from left side in branch block at L2, L3, L4 . Patient should continue Lyrica 50 mg at bedtime and could be increased to twice a day in the future ( prescription from her primary care) She'll continue benefits from Mobic 7.5 mg twice a day when necessary . Patient will follow up with Dr. Olivas ( spine surgon ) for evaluation - PQRS measures = - Patient's medications are documented in the chart. -Tobacco use is negative and counseling.Given. -Patient's has received pneumococcal vaccine. -Advanced care planning discussed, patient not eligible. -Opiate contract not signed. -Pain positive and follow-up visit/procedure is scheduled. -Patient's blood pressure measured [170/83 ] , and documented in the record ,and patient will follow up with the primary care. -Patient's weight was measured and body mass index [ 20,8] above the, normal limits and counseling was done. and patient instructed to follow-up with the primary care physician. -Patient was not identified as an unhealthy alcohol user Objective - Vital Signs Vital signs: Vital Signs Temp 97.7 F 03/03/21 12:17 Pulse 55 L 03/03/21 12:17 Resp 18 03/03/21 12:17 BP 170/83 03/03/21 12:17 Pulse Ox 99 03/03/21 12:17 Intake & Output 03/02/21 03/03/21 03/03/21 18:59 06:59 18:59 Weight 62.142 kg
== END ==
LOC: PNWHC3 12:05
PROVIDERS: ATTEND Specialist
DX: M51.16 Intervertebral disc disorders with radiculopathy, lumbar region (principal); Z98.1 Arthrodesis status; Z88.0 Allergy status to penicillin
CPT/HCPCS: 99211

== ENCOUNTER → 2021-12-28 | Outpatient (CLI) | payer MEDICARE ==
--- NOTE | 2021-12-29 09:25 | MM ---
Reason for Exam: Screening (asymptomatic). Last screening mammogram was performed 12 month(s) ago. Patient History: Menarche at age 12. First Full-Term at age 26. Postmenopausal. Patient has history of breast feeding. Estrogen for 12 years from age 51 until age 63. Progesterone for 12 years from age 51 until age 63. 10/02/2006, Benign Excisional Biopsy on the left side. Cyst Aspiration on the Right side. Cyst Aspiration on the Right side. Cyst Aspiration on the Left side. 06/15/2016, Benign Core Biopsy on the left side. 04/30/2002, Ultrasound-Guided Core Biopsy on the Left side. 06/02/2000, Benign Excisional Biopsy on the left side. Paternal cousin (maisha) had breast cancer, age 35. Risk Values: Maryann 5 year model risk: 2.7%. NCI Lifetime model risk: 6.5%. Prior Study Comparison: 11/13/2019 Bilateral Screening Mammogram, [facility]. 11/28/2019 Left Diagnostic Mammogram, [facility]. 12/21/2020 Bilateral Screening Mammogram, [facility]. Tissue Density: The breast tissue is heterogeneously dense. This may lower the sensitivity of mammography. Findings: Analyzed By CAD. There is no suspicious group of microcalcifications or new suspicious mass in either breast. Overall Assessment: Negative, BI-RAD 1 Management: Screening Mammogram of both breasts in 1 year. A clinical breast exam by your physician is recommended on an annual basis and results should be correlated with mammographic findings. Electronically signed and approved by: Edgar Rios M.D. Radiologis
== END | disposition home or self-care (01) ==
LOC: RADMAMWWP 10:41
PROVIDERS: ATTEND Family Medicine
DX: Z12.31 Encounter for screening mammogram for malignant neoplasm of breast (principal); Z78.0 Asymptomatic menopausal state
CPT/HCPCS: 77063; 77067

== ENCOUNTER → 2022-10-03 | Outpatient (CLI) | payer MEDICARE | END | disposition home or self-care (01) | LOC: LABPAT 09:03 | PROVIDERS: ATTEND Orthopaedic Surgery | DX: Z01.812 Encounter for preprocedural laboratory examination (principal); M16.12 Unilateral primary osteoarthritis, left hip; Z22.322 Carrier or suspected carrier of Methicillin resistant Staphylococcus aureus | CPT/HCPCS: 87070 ==

== ENCOUNTER 2022-10-10 11:58 | Day surgery (SDC) | payer MEDICARE ==
[2022-10-04 16:20] VITALS: BMI 22.0
--- NOTE | 2022-10-09 21:56 | HP ---
HISTORY AND PHYSICAL DATE OF SCHEDULED SURGERY: 10/10/2022. HISTORY OF PRESENT ILLNESS: Ritu Bolanos is a 71-year-old patient seen with symptomatic left hip osteoarthritis. After treatment options were discussed, she elected to proceed with left total hip arthroplasty via direct anterior approach. Consent was obtained. Medical clearance was provided by Dr. Jessica Che's office. PAST MEDICAL HISTORY: Hypertension, hypothyroidism. PAST SURGICAL HISTORY: section, right total hip arthroplasty, laminectomy. DAILY MEDICATIONS: 1. Amlodipine. 2. Bisoprolol. 3. Levothyroxine. 4. Lisinopril. 5. Meloxicam. 6. Tylenol. ALLERGIES: Penicillin. SOCIAL HISTORY: She denies tobacco use. PHYSICAL EVALUATION OF THE LEFT HIP: She has diffuse tenderness about the hip girdle. Limited motion with severe pain. Positive hip impingement sign. Straight-leg raise negative. Distal neurovascular exam intact. RADIOGRAPHS: Left hip radiographs revealed severe osteoarthritic changes. IMPRESSION: 1. Left hip osteoarthritis. 2. Hypertension. 3. Hypothyroidism. PLAN: Direct anterior approach left total hip arthroplasty. MMODL / IJN: [id number] /
[~2022-10-10 11:58] MED LIST changes: +ACETAMINOPHEN TAB 500 MG TAB PO PRN; +DEXAMETHASONE SOD PHOSPHATE 4 MG/ML 1 ML VIAL IV ONE; -LACTATED RINGERS 1,000 ML IV SCH; +MELOXICAM 7.5 MG TAB PO PRN; +ONDANSETRON 4 MG/2 ML VIAL IVP ONE; +TRANEXAMIC ACID IN NACL,ISO-OS 1,000 MG in SALINE 1 100ML.BAG IVPB PRN
[2022-10-10] MEDS ORDERED: LACTATED RINGERS 1,000 ML IV ONE ×2 (12:40→15:41)
[2022-10-10] MEDS ORDERED: MIDAZOLAM 2 MG/2 ML VIAL IVP ONE (13:33)
--- NOTE | 2022-10-10 13:54 | P.ANPRN ---
Procedure Note - Anesthesia - Nerve Block Performed Left Cedrick Single Date of Procedure: 10/10/22 Procedure Start Time: 13:32 Procedure Stop Time: 13:37 Location of Patient: PreOp Indication: Acute Post-Operative Pain, Requested by Surgeon Sedation Type: Sedate with meaningful contact maintained Preparation: Sterile Prep Position: Supine Catheter: None Needle Types: Facet Needle Gauge: 21 Ultrasound used to visualize needle placement: Yes Ultrasound used to observe medication spread: Yes Injectate: 0.5% Ropivacaine (see comment for volume) (15 mls+ 10 mls of NS+4 mgs of Decadron) Blood Aspirated: No Pain Paresthesia on Injection Noted: No Resistance on Injection: Normal Image Stored and Saved: Yes Events: Uneventful and Well Tolerated
[2022-10-10] MEDS ORDERED: ROCURONIUM 10 MG/ML (5 ML VIAL) IV ONE (15:08)
[2022-10-10] MEDS ORDERED: SUCCINYLCHOLINE CHLORIDE 200 MG/10 ML VIAL IV ONE (15:08)
[2022-10-10] MEDS ORDERED: MIDAZOLAM 2 MG/2 ML VIAL ONE (15:08)
[2022-10-10] MEDS ORDERED: GLYCOPYRROLATE 0.2 MG/ML 2 ML VIAL ONE (15:08)
[2022-10-10] MEDS ORDERED: ROPIVACAINE 5 MG/ML 30 ML VIAL ONE (15:08)
[2022-10-10] MEDS ORDERED: LIDOCAINE 4% LTA KIT (4 ML) TOPICAL ONE (15:08)
[2022-10-10] MEDS ORDERED: TRANEXAMIC ACID IN NACL,ISO-OS 1,000 MG/100 ML BAG ONE (15:08)
[2022-10-10] MEDS ORDERED: NEOSTIGMINE 1 MG/ML 10 ML VIAL ONE (15:08)
[2022-10-10] MEDS ORDERED: DEXAMETHASONE SOD PHOSPHATE 4 MG/ML 1 ML VIAL ONE (15:08)
[2022-10-10] MEDS ORDERED: SODIUM CHLORIDE 0.9% (PF) 10 ML VIAL ONE (15:08)
[2022-10-10] MEDS ORDERED: fentaNYL (PF) 50 MCG/ML 2 ML AMP ONE (15:08)
[2022-10-10] MEDS ORDERED: LIDOCAINE 2% INJ 20 MG/ML (2 ML VIAL) ONE (15:08)
[2022-10-10] MEDS ORDERED: PROPOFOL 10 MG/ML 20 ML VIAL IV ONE (15:08)
[2022-10-10] MEDS ORDERED: HYDROcodone/APAP 7.5-325MG 1 EACH TAB PO PRN (17:01)
[2022-10-10] MEDS ORDERED: HYDROmorphone 0.5 MG/0.5 ML SYRINGE IVP PRN ×3 (17:01)
[2022-10-10] MEDS ORDERED: NALOXONE 0.4 MG/ML 1 ML VIAL IV PRN (17:01)
[2022-10-10] MEDS ORDERED: ONDANSETRON 4 MG/2 ML VIAL IVP PRN (17:01)
[2022-10-10] MEDS ORDERED: HYDROcodone/APAP 5-325MG 1 EACH TAB PO PRN (17:01)
--- NOTE | 2022-10-10 17:01 | P.OP ---
Date of Procedure: 10/10/22 Preoperative Diagnosis: Left hip osteoarthritis Postoperative Diagnosis: Left hip osteoarthritis Procedure(s) Performed: Direct anterior left total hip arthroplasty Implants: 1. Depuy Corail 135 standard collar KA size 11 press-fit femoral stem 2. Depuy pinnacle 64 mm multi hole press-fit acetabular shell augmented with 56.5 cancellous bone screws 3. Depuy pinnacle neutral polyethylene acetabular liner 36 mm ID 64 mm OD 4. Biolox delta ceramic femoral head +1.5 36 mm Anesthesia: GETA, regional (erector spinae block) Surgeon: Carter Lu Travel Sales Consultant #1: Usman Loredo Estimated Blood Loss (ml): 55 Pathology: other (Femoral head) Condition: stable Disposition: PACU Indications for Procedure: 71-year-old patient seen with symptomatic severe left hip osteoarthritis. After treatment options were discussed with her, she elected to proceed with direct anterior left total hip arthroplasty. Operative Findings: See description of procedure Description of Procedure: The patient was taken to the operative suite. Patient underwent a general anesthetic by the department of anesthesia. Patient was then transferred to the [place] table. Patient was given preoperative IV antibiotics and TXA. Both lower extremities were placed in standard leg spars. The hip was then prepped and draped in the normal sterile orthopedic fashion. A standard anterior incision was made beginning 3 cm lateral and 1 cm distal to the ASIS extending 10 cm. Dissection was then carried down through the subcutaneous soft tissues down to the fascia overlying the tensor fascia johanny. An incision was now made through the fascia. Careful dissection was taken down exposing the tensor fascia johanny muscle. A Cobra retractor was now placed along the medial femoral neck and a second one along the lateral femoral neck. The venous circumflex vessels were now identified, cauterized and clipped. We identified the anterior hip capsule. An incision was made through the hip capsule along the lateral border. I performed a partial anterior capsulectomy. Retractors were now placed around the femoral neck itself. A femoral neck cut was now made with a sagittal saw. It was completed with an osteotome at the lateral neck area. The femoral head was now removed without difficulty. The extremity was now rotated to 60 of external rotation. It was locked in position. Residual labrum was now debrided out. I noted significant loss deterioration of the anterior acetabulum. The acetabulum appeared extremely shallow and again significant deterioration or loss of the superior/anterior acetabulum was present. Serial reaming was performed of the acetabulum while Galen DIAZ assisted holding an anterior retractor for exposure. I was able to medialize and did deepen the acetabulum again noting significant absence of any bone along the superior and anterior aspect of the acetabulum. I now placed a trial 64 mm acetabular shell and it seemed to give us some reasonable coverage. I chose the 64 mm multi hole acetabular shell to allow for screw fixation/augmentation. It was introduced into the acetabulum without difficulty. The C-arm/fluoroscopy was now brought into the operative field. We made sure we had a true AP pelvic view. We now under direct C-arm/fluoroscopy introduced into the acetabular component with appropriate version and inclination. I held the cup in appropriate position well Galen DIAZ used a mallet to seat the acetabular component. I noted the component now to be well seated and stable. I now decided to augment the fixation given the significant deficiency of the acetabulum. I introduced 56.0 cancellous bone screws of which 3 had excellent purchase into a mediocre purchase. Wound was irrigated copiously. I noted good fixation of the acetabular cup. The C-arm was pulled back. An appropriate liner was introduced and clicked into position. It was felt to be stable. At this point retractors were removed. The extremity was now placed into 120 external rotation with no traction. The leg was now dropped to the ground and adducted. Appropriate retractors were now positioned along the proximal femur. We also placed our femoral look into position. Additional capsular releasing was performed to gain access to the proximal femur. We now used a box osteotome. A canal finder was now utilized. Serial broaching was now performed with the assistance of Galen DIAZ tapping the broaches down with a mallet while held the broach in appropriate rotation and position. This was done until we reached the appropriate size with good overall rotational stability. Appropriate calcar planing was performed. A trial head/neck was placed into position. The hip was now reduced. The C-arm/fluoroscopy was brought back into the operative field. I took an AP pelvis was demonstrated leg length alignment exactly as it was preoperatively as the right leg was short and I noted that we could not shorten the left lower extremity without compromising stability. The trial components appeared adequately sized and adequately positioned. The C-arm/fluoroscopy was pulled back. Retractors were repositioned and the hip was dislocated. The leg was again taken down to the ground and adducted. Appropriate retractors were repositioned as well as the femoral hook. All trial components were removed. The femoral implant was opened along with the femoral head. The femoral implant was introduced on the appropriate handle into our pre-broached area. I held the component position while Galen DIAZ used a mallet to seat the femoral component. The femoral component was now noted to be well seated and stable.. The femoral head was introduced with good positioning and fixation noted. Retractors were now removed. The hip was now reduced. There appeared be good positioning of the hip confirmed on intraoperative fluoroscopy. Spot films were obtained to document this. A second gram of TXA was given. Bipolar cautery had been utilized intermittently through the procedure for hemostasis. The wound was irrigated copiously with pulse lavage mechanical irrigation. The fascia was repaired with Vicryl suture. The subcutaneous soft tissues were repaired in layers with Vicryl suture. The skin was approximated with pernio/Dermabond. Sterile dressings were applied. Patient was then awakened, transferred to a bed and taken to recovery in stable condition. Galen DIAZ assisted with the complex procedure.
[2022-10-10] MEDS ORDERED: LACTATED RINGERS 1,000 ML IV SCH (17:15)
[2022-10-10] MEDS: HYDROmorphone 0.5 MG/0.5 ML SYRINGE IVP PRN ×3 (17:30→17:52)
[2022-10-10] MEDS: LACTATED RINGERS 1,000 ML IV SCH (18:27)
--- NOTE | 2022-10-10 18:39 | XR ---
Intraoperative/procedural fluoroscopic services were provided for left total hip arthroplasty. Total fluoroscopy time is 20 seconds with a total of 1 submitted image to PACS. Total DAP 0.7795. Please se e the operative note for further details.
[2022-10-10] MEDS ORDERED: SENNOSIDES-DOCUSATE SODIUM 1 EACH TAB PO SCH (21:00)
[2022-10-10] MEDS ORDERED: amLODIPine 5 MG TAB PO SCH (21:00)
[2022-10-10] MEDS: traMADol 50 MG TAB PO PRN (23:30)
[2022-10-11] MEDS: traMADol 50 MG TAB PO PRN ×2 (05:41→12:56)
[2022-10-11] MEDS ORDERED: LEVOTHYROXINE 50 MCG TAB PO SCH (06:30)
[2022-10-11] MEDS: LACTATED RINGERS 1,000 ML IV SCH (08:14)
[2022-10-11 08:28] VITALS: BP 108/61; PULSE 73; RESP 17; TEMP 98.1
[2022-10-11 08:59] LABS: Basophils # (A) 0.01 X 10*3/uL (0.00-0.10); Basophils % (A) 0.1 %; Eosinophils # (A) 0 X 10*3/uL (0.04-0.35); Eosinophils % (A) 0 %; HCT 28.4 % (37.2-46.3); HGB 9.4 g/dL (12.0-15.0); Immature Grans, Automated 0.4 %; Lymphocytes # (A) 1.25 X 10*3/uL (0.90-5.00); Lymphocytes % (A) 10.1 %; MCH 31.9 pg (27.0-32.0); MCHC 33.1 g/dL (32.0-37.0); MCV 96.3 fL (80.0-97.0); Mean Platelet Volume 9.8 fL (9.5-12.2); Monocytes # (A) 1.08 X 10*3/uL (0.20-1.00); Monocytes % (A) 8.8 %; NRBC Per 100 WBC 0 /100 WBCS (0.0-0.0); Neutrophils # (A) 9.93 X 10*3/uL (1.80-7.70); Neutrophils % (A) 80.6 %; Platelet Count 255 X 10*3/uL (140-440); RBC 2.95 X 10*6/uL (4.10-5.20); RDW 13.2 % (11.5-14.5); WBC 12.32 X 10*3/uL (4.50-10.00)
[2022-10-11] MEDS ORDERED: lisinopriL 20 MG TAB PO SCH (09:00)
[2022-10-11] MEDS ORDERED: BISOPROLOL 5 MG TAB PO SCH (09:00)
[2022-10-11] MEDS ORDERED: PANTOPRAZOLE 40 MG/10 ML VIAL IVP SCH (09:00)
[2022-10-11] MEDS ORDERED: ENOXAPARIN 40 MG/0.4 ML SYRINGE SQ SCH (09:00)
--- NOTE | 2022-10-11 10:11 | P.CONS ---
History of Present Illness - Reason for Consult Consult date: 10/11/22 Medical management HTN,Hypothyroid., Requesting physician: Carter Lu - Chief Complaint OA left hip - History of Present Illness This pleasant 71-year-old female with past medical history significant for hypertension, hyperlipidemia, hypothyroidism, osteoarthritis, chronic back pain and multiple other medical issues status post direct anterior left total hip arthroplasty secondary to left hip osteoarthritis, failed conservative treatment. Tolerated procedure well. Has been up to the bathroom multiple times, tolerating exertion -does report pain with exertion. Pain controlled at rest. PT pending. Denies lightheadedness, dizziness or focal deficits. Denies chest pain, palpitations, shortness of breath. Using incentive spirometer .Denies nausea, vomiting or diarrhea. Positive diet intake this morning. Denies flatus or bowel movement. Afebrile, WBC 12.3, hemoglobin 9.4, platelets 255. Vital signs stable, maintaining O2 sats in the mid to high 90s on room air. Review of Systems Constitutional: Denied any fatigue denied any fever. Cardio vascular: denied any chest pain, palpitations Gastrointestinal denied any nausea vomiting Pulmonary: Denied any shortness of breath cough Neurologic denied any new focal deficits ROS Statement: Those systems with pertinent positive or pertinent negative responses have been documented in the HPI. ROS Other: All systems not noted in ROS Statement are negative. Past Medical History Past Medical History: Cancer, Hyperlipidemia, Hypertension, Musculoskeletal Disorder, Osteoarthritis (OA), Thyroid Disorder Additional Past Medical History / Comment(s): Degenerative Disc Disease, chronic back pain, constipation, basal cell on forehead. 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 Past Anesthesia/Blood Transfusion Reactions: No Reported Reaction Past Psychological History: No Psychological Hx Reported Smoking Status: Never smoker Past Alcohol Use History: Rare Past Drug Use History: None Reported - Past Family History Father Family Medical History: CVA/TIA, Hypertension Additional Family Medical History / Comment(s): FATHER AT AGE 72. HE HAD HX ALSO OF ETOH ABUSE AND SMOKING. Mother Family Medical History: Hypertension Additional Family Medical History / Comment(s): MOTHER AT AGE 90 YRS. Brother(s) Family Medical History: Cancer Additional Family Medical History / Comment(s): Brain cancer, . Medications and Allergies Home Medications Medication Instructions Recorded Confirmed Type Alendronate Sodium 70 mg PO ANGELES 06/02/15 10/10/22 History Cyanocobalamin [Vitamin B-12] 500 mcg PO MOTH 06/02/15 10/10/22 History Fish Oil/Dha/Epa [Fish Oil 1,200 1 each PO DAILY 06/02/15 10/10/22 History mg Fish Oil] Levothyroxine Sodium [Synthroid] 50 mcg PO QAM 06/10/20 10/10/22 History amLODIPine [Norvasc] 5 mg PO HS 06/10/20 10/10/22 History lisinopriL [Zestril] 40 mg PO QAM 06/10/20 10/10/22 History Meloxicam [Mobic] 7.5 mg PO QAM PRN 03/03/21 10/10/22 History Acetaminophen [Tylenol Extra 500 mg PO DIRECTED PRN 10/04/22 10/10/22 History Strength] Bisoprolol Fumarate 5 mg PO QAM 10/04/22 10/10/22 History Calcium Carb/Vitamin D3/Vit K1 2 tab PO DAILY 10/04/22 10/10/22 History [Viactiv 650 mg-12.5 Mcg Chew] [employer] Am/Pm Allergy Pill 10 mg PO DAILY 10/04/22 10/10/22 History Multivit with Calcium,Iron,Min 1 each PO DAILY 10/04/22 10/10/22 History [Women's Multivitamin] Naproxen Sodium [Aleve] 220 mg PO BID PRN 10/04/22 10/10/22 History Allergies Allergy/AdvReac Type Severity Reaction Status Date / Time Penicillins Allergy Severe Rash/Hives Verified 10/10/22 12:42 acetaminophen [From [facility]ell] AdvReac Extreme Verified 10/10/22 12:42 fatigue hydrocodone [From Goodell] AdvReac Extreme Verified 10/10/22 12:42 fatigue Physical Exam Vitals: Vital Signs Temp Pulse Pulse Resp BP BP Pulse Ox 10/11/22 08:55 97 10/11/22 07:30 98.1 F 73 17 108/61 99 10/11/22 01:17 97.8 F 70 16 129/65 96 10/10/22 20:57 60 123/69 98 10/10/22 20:43 68 118/60 10/10/22 20:27 67 132/72 97 10/10/22 20:12 72 121/75 98 10/10/22 20:00 88 133/75 88 L 10/10/22 19:42 73 159/73 99 10/10/22 19:27 57 L 163/75 100 10/10/22 19:12 63 183/78 100 10/10/22 18:57 59 L 154/76 100 10/10/22 18:43 97.5 F L 64 17 167/78 100 10/10/22 18:42 59 L 174/75 100 10/10/22 18:14 63 16 153/72 96 10/10/22 17:59 55 L 16 145/66 96 10/10/22 17:44 62 16 143/89 95 10/10/22 17:29 67 16 164/76 100 10/10/22 17:14 61 16 134/66 100 10/10/22 13:45 62 16 199/84 100 10/10/22 12:40 98.3 F 60 15 181/81 99 Intake and Output 10/10/22 10/11/22 10/11/22 22:59 06:59 14:59 Intake Total 850 Output Total 55 Balance 795 Intake: IV 850 Output: Estimated Blood Loss 55 Other: Voiding Method Toilet Toilet # Voids 3 Weight 66.7 kg PHYSICAL EXAM: VITAL SIGNS: [As above] GENERAL: Sitting up in bed, no acute distress, HEENT: Normocephalic, atraumatic ,Conjunctivae normal. eyes normal. NECK: Supple, No JVD. No thyroid enlargement. No LNs CARDIOVASCULAR: S1, S2 regular..No murmur RESPIRATION: Unlabored, equal air entry, Breath sounds diminished in the bases. No rhonchi or crackles. No bronchial breathing. ABDOMEN: Soft, nontender . No guarding. no masses palpable. +Bowel sounds heard. LEGS: No edema. no swelling PSYCHIATRY: Alert and oriented X3, mood and affect normal. NERVOUS SYSTEM: Cranial N 2-12 grossly normal. No focal deficits. Strength and sensation grossly intact.. Skin: Warm and dry, no rash Results CBC & Chem 7: 10/11/22 04:26 Labs: Abnormal Lab Results - Last 24 Hours (Table) 10/11/22 Range/Units 04:26 WBC 12.32 H (4.50-10.00) X 10*3/uL RBC 2.95 L (4.10-5.20) X 10*6/uL Hgb 9.4 L (12.0-15.0) g/dL Hct 28.4 L (37.2-46.3) % Immature Gran # 0.05 H (0.00-0.04) X 10*3/uL Neutrophils # 9.93 H (1.80-7.70) X 10*3/uL Monocytes # 1.08 H (0.20-1.00) X 10*3/uL Eosinophils # 0 L (0.04-0.35) X 10*3/uL Assessment and Plan Assessment: Left hip osteoarthritis, status post direct anterior left total hip arthroplasty Hypertension Hyperlipidemia Degenerative disc disease, chronic back pain Osteoarthritis, history of total right hip replacement Plan: Continue on current medication regime ,monitoring and symptomatic treatm ent. Aggressive pulmonary toileting with incentive spirometer reinforced. Pain management/DVT prophylaxis as per primary. PPI ordered for GI prophylaxis. Home meds reviewed and resumed accordingly .PT pending. Thank you for the consult. Follow-up with PCP in one week post discharge. The impression and plan of care has been dictated as directed. : I performed a history and examination of this patient, discussed the same with the dictator. I agree with the dictator's note ,documented as a scribe. Any additional findings or plans will be noted.
--- NOTE | 2022-10-11 10:13 | P.PN ---
Subjective Progress Note Date: 10/11/22 Principal diagnosis: Status post-direct anterior total hip arthroplasty Patient was examined today at bedside, she is resting in her hospital chair. She did very well with physical therapy. She notices discomfort in the hip region when ambulating. She is urinating with no issues, she is passing gas this time. Denies any headaches, lightheadedness, chest pain or shortness of breath Objective - Vital Signs Vital signs: Vital Signs Temp 98.1 F 10/11/22 07:30 Pulse 73 10/11/22 07:30 Resp 17 10/11/22 07:30 BP 108/61 10/11/22 07:30 Pulse Ox 97 10/11/22 08:55 FiO2 Intake & Output 10/10/22 10/11/22 10/11/22 18:59 06:59 18:59 Intake Total 1650 Output Total 55 Balance 1595 Weight 66.7 kg Intake: IV 1650 Output: Estimated Blood Loss 55 Other: Voiding Method Toilet Toilet # Voids 3 - Exam Left lower extremity: Incision is clean, dry, and intact. The foam dressing is in good condition. There is minimal soft tissue swelling and ecchymosis surrounding the medial and lateral aspects of the incision. Calf is soft, no tenderness with palpation. Plantar flexion, dorsiflexion, EHL, FHL are intact. Sensory exam to light touch throughout the extremity is intact, dorsal pedis pulses 2+. - Labs CBC & Chem 7: 10/11/22 04:26 Labs: Abnormal Lab Results - Last 24 Hours (Table) 10/11/22 Range/Units 04:26 WBC 12.32 H (4.50-10.00) X 10*3/uL RBC 2.95 L (4.10-5.20) X 10*6/uL Hgb 9.4 L (12.0-15.0) g/dL Hct 28.4 L (37.2-46.3) % Immature Gran # 0.05 H (0.00-0.04) X 10*3/uL Neutrophils # 9.93 H (1.80-7.70) X 10*3/uL Monocytes # 1.08 H (0.20-1.00) X 10*3/uL Eosinophils # 0 L (0.04-0.35) X 10*3/uL Assessment and Plan Assessment: Postoperative day #1 status post right anterior left total hip arthroplasty Plan: Pain control, plan for discharge home on tramadol 50 mg 1 tab every 6 hours as needed spiral DVT prophylaxis, aspirin 81 mg twice a day for 1 month Wound care instruction discussed, this to include showering and icing instructions Home physical therapy/nursing Medical recommendations Discharge planning: Patient stable for discharge home today Time with Patient: Less than 30
--- NOTE | 2022-10-11 10:16 | P.DS ---
Providers Date of admission: 10/10/2022 Expected date of discharge: 10/11/22 Attending physician: Carter Lu Consults: 10/10/22 17:01 Consult Physician Routine Consulting Provider: Gemrain Che Consult Reason/Comments: Medical management Do you want consulting provider notified?: Yes Primary care physician: Jessica Che Hospital Course: Date of admission: 10/10/2022 Date of discharge: 10/11/2022 Admission diagnosis: Status post direct anterior to anterior left total hip arthroplasty Discharge diagnosis: Same Attending physician: Dr. Lu Surgical procedures: Direct anterior left total hip arthroplasty Brief history: Patient is a 71-year-old female with a history of with progressive primary left hip osteoarthritis. At this point patient has failed conservative treatment measures and has opted to proceed with a elective right anterior left total hip arthroplasty. Hospital course: Details of patient's surgery can be found in operative report. Patient tolerated the procedure well and was subsequently transported to orthopedic floor. Patient's orthopeidc and medical care was provided daily. Patient had daily laboratory tests performed for evaluation of overall blood counts. Patient had daily physical therapy to include strengthening range of motion as well as education with walker ambulation. Patient was treated with Lovenox for their postoperative DVT prophylaxis during their inpatient stay. Patient was noted to have a relatively uneventful postoperative course. Patient reported satisfactory pain control with oral pain medications by postoperative day 0. Patient showed satisfactory progress with physical therapy. Patient moved steadily through the program and had no difficulty meeting the goals by postoperative day 1. Given patient's otherwise satisfactory course and having met physical therapy goals, plan is to discharge patient home on postoperative day 1. Discharge condition/disposition: Patient will be discharged home in stable condition. Discharge medications: Instructions are given on resumption of patient's normal daily medications per primary care recommendation, in addition patient will be prescribed mL 50 mg, senna, aspirin 81 mg. Discharge instructions: 1. Wound care and infection precautions, keep incision dry and covered while showering, no lotions, creams, moisturizers. No soaking, tubs, pools, hottubs. Do not scrub over the incision. 2. Weight-bear as tolerated with walker / cane until follow-up. 3. Ice and elevate when necessary. Do not exceed 20 minutes per hour with ice pack. 4. Utilize compression sleeve until seen at first follow up appointment. 5. Visiting nursing care. 6. Home physical therapy. 7. Pain meds and anticoagulants per prescription. 8. Pain medication has potential to cause constipation. Increase oral fluid and fiber intake. Contact primary care provider if you have not had a bowel movement within 48 hours after discharge 9. No anti-inflammatory medication until discussed at first post operative visit, this including Motrin, Aleve, Mobic, Diclofenac. 10. Follow up in office at 2 weeks postop with Galen Loredo PA-C/Ramesh Cartagena 11. Follow up with your primary care doctor 7-10 days after discharge. 12. Contact [facility] with any questions, . Procedures: Direct anterior left total hip arthroplasty Patient Condition at Discharge: Good Plan - Discharge Summary Discharge Rx Participant: Yes New Discharge Prescriptions: New Aspirin [Adult Low Dose Aspirin EC] 81 mg PO BID #60 tab traMADol HCl [Ultram] 50 mg PO Q6H PRN #28 tab PRN Reason: Pain Sennosides/Docusate Sodium [Senna-S 8.6-50 mg Tablet] 2 each PO DAILY PRN #30 tablet PRN Reason: Constipation Discontinued Naproxen Sodium [Aleve] 220 mg PO BID PRN PRN Reason: Pain No Action Cyanocobalamin [Vitamin B-12] 500 mcg PO MOTH Alendronate Sodium 70 mg PO ANGELES Fish Oil/Dha/Epa [Fish Oil 1,200 mg Fish Oil] 1 each PO DAILY lisinopriL [Zestril] 40 mg PO QAM amLODIPine [Norvasc] 5 mg PO HS Levothyroxine Sodium [Synthroid] 50 mcg PO QAM [employer] Am/Pm Allergy Pill 10 mg PO DAILY Acetaminophen [Tylenol Extra Strength] 500 mg PO DIRECTED PRN PRN Reason: Pain Bisoprolol Fumarate 5 mg PO QAM Meloxicam [Mobic] 7.5 mg PO QAM PRN PRN Reason: Pain Multivit with Calcium,Iron,Min [Women's Multivitamin] 1 each PO DAILY Calcium Carb/Vitamin D3/Vit K1 [Viactiv 650 mg-12.5 Mcg Chew] 2 tab PO DAILY Discharge Medication List Alendronate Sodium 70 mg PO ANGELES 06/02/15 [History] Cyanocobalamin [Vitamin B-12] 500 mcg PO MOTH 06/02/15 [History] Fish Oil/Dha/Epa [Fish Oil 1,200 mg Fish Oil] 1 each PO DAILY 06/02/15 [History] Levothyroxine Sodium [Synthroid] 50 mcg PO QAM 06/10/20 [History] amLODIPine [Norvasc] 5 mg PO HS 06/10/20 [History] lisinopriL [Zestril] 40 mg PO QAM 06/10/20 [History] Meloxicam [Mobic] 7.5 mg PO QAM PRN 03/03/21 [History] Acetaminophen [Tylenol Extra Strength] 500 mg PO DIRECTED PRN 10/04/22 [History] Bisoprolol Fumarate 5 mg PO QAM 10/04/22 [History] Calcium Carb/Vitamin D3/Vit K1 [Viactiv 650 mg-12.5 Mcg Chew] 2 tab PO DAILY 10/04/22 [History] [employer] Am/Pm Allergy Pill 10 mg PO DAILY 10/04/22 [History] Multivit with Calcium,Iron,Min [Women's Multivitamin] 1 each PO DAILY 10/04/22 [History] Aspirin [Adult Low Dose Aspirin EC] 81 mg PO BID #60 tab 10/11/22 [Rx] Sennosides/Docusate Sodium [Senna-S 8.6-50 mg Tablet] 2 each PO DAILY PRN #30 tablet 10/11/22 [Rx] traMADol HCl [Ultram] 50 mg PO Q6H PRN #28 tab 10/11/22 [Rx] Follow up Appointment(s)/Referral(s): [facility], [NON-STAFF] - 1-2 Days ([facility] will call you to schedule your in home nursing and physical therapy visits. ) Germain Che MD [STAFF PHYSICIAN] - 1 Week Usman Loredo PAC [PHYSICIAN LAUNDRY PRESS OPERATOR] - 10/26/22 3:10 pm Patient Instructions/Handouts: Anterior Hip Replacement (DC) Activity/Diet/Wound Care/Special Instructions: Orthopedic Discharge Instructions: 1. Wound care and infection precautions, keep incision dry and covered while showering, no lotions, creams, moisturizers. No soaking, pools, hot tubs. Do not scrub over incision. 2. Weight-bear as tolerated with walker / cane until follow-up. 3. Ice and elevate when necessary. Do not exceed 20 minutes per hour with ice pack. 4. Utilize compression sleeve until seen at first follow up appointment. 5. Pain meds and anticoagulants per prescription. 6. Pain medication has potential to cause constipation. Increase oral fluid and fiber intake. Contact primary care provider if you have not had a bowel movement within 48 hours after discharge. 7. No anti-inflammatory medication until discussed at first post operative visit, this including Motrin, Aleve, Mobic, Diclofenac. 8. Follow up in office at 2 weeks postop with Galen Loredo PA-C / Ramesh Hagen PA-C 9. Follow up with your primary care doctor 7-10 days after discharge. 10. Contact [facility] with any questions, . Keep incision clean, dry contact. While showering, cover silver foam dressing with Saran wrap. Silver foam dressing may be removed in 7 days, 10/17/2022. May shower directly over incision once silver foam dressing is removed. Discharge Disposition: HOME WITH HOME HEALTH SERVICES
[2022-10-12] MEDS ORDERED: PANTOPRAZOLE 40 MG TABLET PO SCH (07:30)
== END 2022-10-11 13:15 | disposition home health service (06) ==
LOC: OR 11:58 → 4SSUR 17:37 → OR 10-11 13:15
PROVIDERS: ATTEND Orthopaedic Surgery
DX: M16.12 Unilateral primary osteoarthritis, left hip (principal); G89.18 Other acute postprocedural pain; I10 Essential (primary) hypertension; E78.5 Hyperlipidemia, unspecified; M19.90 Unspecified osteoarthritis, unspecified site; E07.9 Disorder of thyroid, unspecified; Z98.890 Other specified postprocedural states; Z82.49 Family history of ischemic heart disease and other diseases of the circulatory system; Z79.899 Other long term (current) drug therapy
CPT/HCPCS: 94760; 97161; 86900; 86901; 85025; 86850; 73501; 27130; 64447; C1776; J2250; J1100; J0690 ×2; J2405; J1650; C9113; J1170 ×2; 88300

== ENCOUNTER 2022-10-14 23:15 | Emergency (ER) | payer MEDICARE ==
[2022-10-14 23:22] VITALS: RESP 16; TEMP 98.4
[2022-10-14] MEDS ORDERED: fentaNYL (PF) 50 MCG/ML 2 ML AMP IVP ONE (23:55)
--- NOTE | 2022-10-14 23:57 | ED ---
Lower Extremity Injury HPI - General Chief Complaint: Extremity Injury, Lower Stated Complaint: post op comp, hip replacement Time Seen by Provider: 10/14/22 23:47 Source: patient Mode of arrival: EMS - History of Present Illness Initial Comments: This patient is 71-year-old woman who presents to have reevaluation of left hip pain. The patient had total hip replacement, left, on October [address] Lu. She did well and was discharged on the following day. The patient states that she had been sitting on the second step today talking on the phone and then when she got up she felt a pop in her left hip and she was having a very difficult time bearing weight. She is able to use her walker to get to the bathroom to try to urinate. She states that she was then not able to get up and she called her son who came to help her. They were not able to move her social they called EMS who brings her here. She did have morphine as analgesia but is continuing to have pain. MD Complaint: hip injury Onset/Timin -: hour(s) Injury: Hip: Left Type of Injury: other Place: home Severity: severe Improves With: other Worsens With: weight bearing, movement Context: other Associated Symptoms: snap/pop sensation Treatments Prior to Arrival: other - Related Data Home Medications Medication Instructions Recorded Confirmed Alendronate Sodium 70 mg PO ANGELES 06/02/15 10/16/22 Cyanocobalamin [Vitamin B-12] 500 mcg PO MOTH 06/02/15 10/16/22 Fish Oil/Dha/Epa [Fish Oil 1,200 1 cap PO DAILY 06/02/15 10/16/22 mg Fish Oil] Levothyroxine Sodium [Synthroid] 50 mcg PO DAILY 06/10/20 10/16/22 amLODIPine [Norvasc] 5 mg PO HS 06/10/20 10/16/22 lisinopriL [Zestril] 40 mg PO DAILY 06/10/20 10/16/22 Meloxicam [Mobic] 7.5 mg PO DAILY PRN 03/03/21 10/16/22 Acetaminophen [Tylenol Extra 500 mg PO DIRECTED PRN 10/04/22 10/16/22 Strength] Bisoprolol Fumarate 5 mg PO DAILY 10/04/22 10/16/22 Calcium Carb/Vitamin D3/Vit K1 2 tab PO DAILY 10/04/22 10/16/22 [Viactiv 650 mg-12.5 Mcg Chew] [employer] Am/Pm Allergy Pill 10 mg PO DAILY 10/04/22 10/16/22 Multivit with Calcium,Iron,Min 1 tab PO DAILY 10/04/22 10/16/22 [Women's Multivitamin] Sennosides/Docusate Sodium 2 tab PO DAILY PRN 10/16/22 10/16/22 [Senna-S 8.6-50 mg Tablet] Previous Rx's Medication Instructions Recorded Aspirin [Adult Low Dose Aspirin EC] 81 mg PO BID #60 tab 10/11/22 traMADol HCl [Ultram] 50 mg PO Q6H PRN #28 tab 10/11/22 Allergies Allergy/AdvReac Type Severity Reaction Status Date / Time Penicillins Allergy Severe Rash/Hives Verified 10/16/22 20:35 acetaminophen [From [place]] AdvReac Extreme Verified 10/16/22 20:35 fatigue hydrocodone [From [place]] AdvReac Extreme Verified 10/16/22 20:35 fatigue Review of Systems ROS Statement: Those systems with pertinent positive or pertinent negative responses have been documented in the HPI. ROS Other: All systems not noted in ROS Statement are negative. Constitutional: Denies: fever, weakness Eyes: Denies: vision change Respiratory: Denies: cough, dyspnea Cardiovascular: Denies: chest pain, syncope Gastrointestinal: Denies: abdominal pain, vomiting, diarrhea Genitourinary: Denies: dysuria, hematuria Musculoskeletal: Reports: as per HPI, arthralgia. Denies: back pain Skin: Denies: rash Neurological: Denies: headache, weakness, numbness, paresthesias Past Medical History Past Medical History: Cancer, Hypertension Additional Past Medical History / Comment(s): DDD, chronic back pain, constipation,basal cell on forehead History of Any Multi-Drug Resistant Organisms: None Reported Past Surgical History: Back Surgery, Breast Surgery, Section, Joint Replacement Additional Past Surgical History / Comment(s): L breast biopsies X2 AND LUMPECTOMIES. PREVIOUS BACK SURGERY x2- laminectomy, 2014 decompression, L4-5 fusion and mesh inserted, Total hip replacement of right . 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 HE HAD HX ALSO OF ETOH ABUSE AND SMOKING. Mother Family Medical History: Hypertension Additional Family Medical History / Comment(s): MOTHER AT AGE 90 YRS. Brother(s) Family Medical History: Cancer Additional Family Medical History / Comment(s): Brain cancer, . General Exam General appearance: alert, in no apparent distress Head exam: Present: atraumatic, normocephalic Eye exam: Present: normal appearance. Absent: scleral icterus, conjunctival injection Neck exam: Present: normal inspection Respiratory exam: Present: normal lung sounds bilaterally. Absent: respiratory distress, wheezes, rales, rhonchi, stridor Cardiovascular Exam: Present: regular rate, normal rhythm, normal heart sounds. Absent: systolic murmur, diastolic murmur, rubs, gallop GI/Abdominal exam: Present: soft. Absent: distended, tenderness, guarding, rebound, rigid, mass Extremities exam: Present: tenderness, normal capillary refill, other (Resists range of motion at the left hip.). Absent: full ROM, pedal edema, calf tenderness Neurological exam: Present: alert. Absent: motor sensory deficit Skin exam: Present: warm, dry, intact, normal color. Absent: rash Course Vital Signs 10/14/22 10/15/22 10/15/22 23:16 01:47 01:57 Temperature 98.4 F Pulse Rate 83 86 92 Respiratory 16 16 16 Rate Blood Pressure 164/85 144/63 163/77 O2 Sat by Pulse 100 100 100 Oximetry 10/15/22 10/15/22 10/15/22 02:02 02:06 02:12 Temperature Pulse Rate 81 81 81 Respiratory 16 16 16 Rate Blood Pressure 147/67 144/66 158/95 O2 Sat by Pulse 100 100 100 Oximetry 10/15/22 10/15/22 10/15/22 02:27 02:42 02:57 Temperature Pulse Rate 82 86 82 Respiratory 16 16 16 Rate Blood Pressure 154/69 148/64 156/70 O2 Sat by Pulse 100 99 99 Oximetry 10/15/22 10/15/22 03:27 03:57 Temperature Pulse Rate 89 85 Respiratory 16 16 Rate Blood Pressure 139/65 126/57 O2 Sat by Pulse 100 100 Oximetry Procedures - Orthopedic Joint Reduction Joint #1 Consent Obtained: written consent Side: left Joint Reduction Location: hip Analgesia: procedural sedation Technique Used: direct manipulation Post-Reduction Neuro Exam: intact Post-Reduction Vascular Exam: intact Post Reduction X-Ray Obtained: Yes Post Reduction X-Ray Results: reduced Splint Applied: Yes (knee immobilizer) Patient Tolerated Procedure: well, no complications - Procedural Sedation *Indications: fracture/dislocation reduction *Previous Adverse Reaction to Anesthesia/Sedation?: No * Testing Complete?: No Reason Test Not Complete:: Age > 60 *ASA Class: II *Mallampati Airway Score: 3 Preparation: library monitor applied, pulse oximeter, capnometry used, supplemental O2 applied, suction/airway equipment at bedside, IV secured IV Propofol Dose (mgs): 60 Complications: none Patient Tolerated Procedure: well, no complications Medical Decision Making - Medical Decision Making This patient is a 71-year-old woman here with left hip dislocation. The patient is given analgesia Left hip x-ray was obtained which I interpreted as showing a left hip dislocate d. We discussed risks, benefits, indications and she did give consent to have reduction here in the emergency department. Procedural sedation and closed reduction was accomplished without complication, please see the procedure note. Postreduction hip x-ray was obtained which I interpreted as showing reduced left hip, no acute bony trauma. The patient is given knee immobilizer and counseled to wear this, to contact her orthopedic surgeon in the morning, further care and follow-up as well as return parameters discussed. Was pt. sent in by a medical professional or institution (, PA, WAREHOUSE PRICING AND INVENTORY CLERK, urgent care, hospital, or senior care...) When possible be specific @ -[No] Did you speak to anyone other than the patient for history (EMS, parent, family, police, friend...)? What history was obtained from this source @ -[No] Did you review nursing and triage notes (agree or disagree)? Why? @ -[I reviewed and agree with nursing and triage notes] Were old charts reviewed (outside hosp., previous admission, EMS record, old EKG, old radiological studies, urgent care reports/EKG's, senior care records)? Report findings @ -old charts were reviewed] Differential Diagnosis (chest pain, altered mental status, abdominal pain women, abdominal pain men, vaginal bleeding, weakness, fever, dyspnea, syncope, headache, dizziness, GI bleed, back pain, seizure, CVA, palpatations, mental health, musculoskeletal)? @ -[Differential diagnosis for the patient's left hip pain included fracture, dislocation, sprain, muscle strain, neurovascular injury , amongst other conditions EKG interpreted by me (3pts min.). @ -[ X-rays interpreted by me (1pt min.). @ -[As above CT interpreted by me (1pt min.). @ -[None done] U/S interpreted by me (1pt. min.). @ -[None done] What testing was considered but not performed or refused? (CT, X-rays, U/S, labs)? Why? @ -[None] What meds were considered but not given or refused? Why? @ -[None] Did you discuss the management of the patient with other professionals (professionals i.e. , PA, WAREHOUSE PRICING AND INVENTORY CLERK, lab, RT, psych nurse, social services technician, ekg manager, teacher, seal delivery vehicle officer, nurse case management)? Give summary @ -[No] Was smoking cessation discussed for >3mins.? @ -[No] Was critical care preformed (if so, how long)? @ -[No] Were there social determinants of health that impacted care today? How? (Homelessness, low income, unemployed, alcoholism, drug addiction, transportation, low edu. Level, literacy, decrease access to med. care, alf, rehab)? @ -[No] Was there de-escalation of care discussed even if they declined (Discuss DNR or withdrawal of care, Hospice)? DNR status @ -[No] What co-morbidities impacted this encounter? (DM, HTN, Smoking, COPD, CAD, Cancer, CVA, ARF, Chemo, Hep., AIDS, mental health diagnosis, sleep apnea, morbid obesity)? @ -[None] Was patient admitted / discharged? Hospital course, mention meds given and route, prescriptions, significant lab abnormalities, going to OR and other pertinent info. @ -[Discharged Undiagnosed new problem with uncertain prognosis? @ -[No] Drug Therapy requiring intensive monitoring for toxicity (Heparin, Nitro, Insulin, Cardizem)? @ -[No] Were any procedures done? @ -[Closed reduction of the left hip as well as procedural sedation, see the notes Diagnosis/symptom? @ -[Left hip dislocation, with a closed reduction Procedural sedation Acute, or Chronic, or Acute on Chronic? @ -[Acute Uncomplicated (without systemic symptoms) or Complicated (systemic symptoms)? @ -[Uncomplicated Side effects of treatment? @ -[No] Exacerbation, Progression, or Severe Exacerbation? @ -[No] Poses a threat to life or bodily function? How? (Chest pain, USA, [place], pneumonia, PE, COPD, DKA, ARF, appy, cholecystitis, CVA, Diverticulitis, Homicidal, Suicidal, threat to staff... and all critical care pts) @ -[No] Disposition Clinical Impression: Posterior dislocation of hip Disposition: HOME SELF-CARE Condition: Good Instructions (If sedation given, give patient instructions): Moderate Sedation (ED) Is patient prescribed a controlled substance at d/c from ED?: No Referrals: Jessica Che DO [Primary Care Provider] - 1-2 days Carter Lu DO [Doctor of Osteopathic Medicine] - 1-2 days
[2022-10-15] MEDS ORDERED: PROPOFOL 10 MG/ML 20 ML VIAL IV ONE (01:37)
--- NOTE | 2022-10-15 03:58 | XR ---
EXAM: XR Left Hip With Pelvis When Performed, 2 or 3 Views CLINICAL HISTORY: Hip pain. TECHNIQUE: Two or three views of the left hip with pelvis when performed. COMPARISON: No relevant prior studies available. FINDINGS: Bones/joints: The left hip replacement is dislocated. Bilateral total hip replacements. No acute fracture. Soft tissues: Unremarkable. IMPRESSION: The left hip replacement is dislocated.
[2022-10-15 04:00] VITALS: BP 126/57; PULSE 85
--- NOTE | 2022-10-15 04:00 | XR ---
EXAM: XR Left Hip 1 View CLINICAL HISTORY: Postreduction. TECHNIQUE: Frontal view of the left hip. COMPARISON: No relevant prior studies available. FINDINGS: Bones/joints: The previously seen dislocation of the left hip replacement has been fully reduced. Soft tissues: Unremarkable. IMPRESSION: Reduced left hip replacement dislocation.
== END 2022-10-15 04:26 | disposition home or self-care (01) ==
LOC: EC 23:15
DX: T84.021A Dislocation of internal left hip prosthesis, initial encounter (principal); I10 Essential (primary) hypertension; Z88.0 Allergy status to penicillin; Z88.5 Allergy status to narcotic agent; Z79.899 Other long term (current) drug therapy
CPT/HCPCS: 99284; 73501; 73502; 27250; 99152; J3010; J2704

== ENCOUNTER 2022-10-16 20:02 | Observation (INO) | payer MEDICARE ==
--- NOTE | 2022-10-16 20:12 | ED ---
General Adult HPI - General Chief complaint: Extremity Injury, Lower Stated complaint: hip dislocation Time Seen by Provider: 10/16/22 20:03 Source: patient Mode of arrival: EMS Limitations: no limitations - History of Present Illness Initial comments: Dictation was produced using [employer] dictation software. please excuse any grammatical, word or spelling errors. Chief Complaint: 71-year-old female presents to the emergency department again for a left hip dislocation History of Present Illness: 71-year-old female 6 days ago she had left total hip replacement performed by Dr. Lu. She's been recovering at home. Yesterday she dislocated her hip. Today she was sitting in a chair. She reached forward to grab something when she felt her left hip pop out of place. Denies any numbness and paresthesias to the left lower extremity. The ROS documented in this emergency department record has been reviewed and confirmed by me. Those systems with pertinent positive or negative responses have been documented in the HPI. All other systems are other negative and/or noncontributory. - Related Data Home Medications Medication Instructions Recorded Confirmed Alendronate Sodium 70 mg PO ANGELES 06/02/15 10/16/22 Cyanocobalamin [Vitamin B-12] 500 mcg PO MOTH 06/02/15 10/16/22 Fish Oil/Dha/Epa [Fish Oil 1,200 1 cap PO DAILY 06/02/15 10/16/22 mg Fish Oil] Levothyroxine Sodium [Synthroid] 50 mcg PO DAILY 06/10/20 10/16/22 amLODIPine [Norvasc] 5 mg PO HS 06/10/20 10/16/22 lisinopriL [Zestril] 40 mg PO DAILY 06/10/20 10/16/22 Meloxicam [Mobic] 7.5 mg PO DAILY PRN 03/03/21 10/16/22 Acetaminophen [Tylenol Extra 500 mg PO DIRECTED PRN 10/04/22 10/16/22 Strength] Bisoprolol Fumarate 5 mg PO DAILY 10/04/22 10/16/22 Calcium Carb/Vitamin D3/Vit K1 2 tab PO DAILY 10/04/22 10/16/22 [Viactiv 650 mg-12.5 Mcg Chew] [employer] Am/Pm Allergy Pill 10 mg PO DAILY 10/04/22 10/16/22 Multivit with Calcium,Iron,Min 1 tab PO DAILY 10/04/22 10/16/22 [Women's Multivitamin] Sennosides/Docusate Sodium 2 tab PO DAILY PRN 10/16/22 10/16/22 [Senna-S 8.6-50 mg Tablet] Previous Rx's Medication Instructions Recorded Aspirin [Adult Low Dose Aspirin EC] 81 mg PO BID #60 tab 10/11/22 traMADol HCl [Ultram] 50 mg PO Q6H PRN #28 tab 10/11/22 Allergies Allergy/AdvReac Type Severity Reaction Status Date / Time Penicillins Allergy Severe Rash/Hives Verified 10/16/22 20:35 acetaminophen [From [place]] AdvReac Extreme Verified 10/16/22 20:35 fatigue hydrocodone [From [place]] AdvReac Extreme Verified 10/16/22 20:35 fatigue Review of Systems ROS Statement: Those systems with pertinent positive or pertinent negative responses have been documented in the HPI. ROS Other: All systems not noted in ROS Statement are negative. Past Medical History Past Medical History: Cancer, Hypertension Additional Past Medical History / Comment(s): DDD, chronic back pain, constipation,basal cell on forehead History of Any Multi-Drug Resistant Organisms: None Reported Past Surgical History: Back Surgery, Breast Surgery, Section, Joint Replacement Additional Past Surgical History / Comment(s): L breast biopsies X2 AND LUMPECTOMIES. PREVIOUS BACK SURGERY x2- laminectomy, 2014 decompression, L4-5 fusion and mesh inserted, Total hip replacement of right . 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 HE HAD HX ALSO OF ETOH ABUSE AND SMOKING. Mother Family Medical History: Hypertension Additional Family Medical History / Comment(s): MOTHER AT AGE 90 YRS. Brother(s) Family Medical History: Cancer Additional Family Medical History / Comment(s): Brain cancer, . General Exam - General Exam Comments Initial Comments: PHYSICAL EXAM: General Impression: Alert and oriented x3, not in acute distress HEENT: Normocephalic atraumatic, extra-ocular movements intact, pupils equal and reactive to light bilaterally, mucous membranes moist. Cardiovascular: Heart regular rate and rhythm Chest: Able to complete full sentences, no retractions, no tachypnea Musculoskeletal: Pulses present and equal in all extremities, no peripheral edema, shortened left lower extremity Motor: no focal deficits noted Neurological: CN II-XII grossly intact, no focal motor or sensory deficits noted Skin: Intact with no visualized rashes Psych: Normal affect and mood Limitations: no limitations Course Vital Signs 10/16/22 20:08 Temperature 98.2 F Pulse Rate 89 Respiratory 20 Rate Blood Pressure 157/102 O2 Sat by Pulse 100 Oximetry Procedures - Orthopedic Joint Reduction Joint #1 Consent Obtained: verbal consent, written consent Side: left Joint Reduction Location: hip Analgesia: procedural sedation Technique Used: direct manipulation Post-Reduction Neuro Exam: intact Post-Reduction Vascular Exam: intact Post Reduction X-Ray Obtained: Yes Post Reduction X-Ray Results: reduced Splint Applied: No Patient Tolerated Procedure: well - Procedural Sedation *Procedural Sedation Start Time: 20:40 *Procedural Sedation Stop Time: 20:50 *Indications: fracture/dislocation reduction *Previous Adverse Reaction to Anesthesia/Sedation?: No * Testing Complete?: No Reason Test Not Complete:: Post-menopausal *ASA Class: II *Mallampati Airway Score: 2 Preparation: belt lacer applied, pulse oximeter, capnometry used, supplemental O2 applied IV Propofol Dose (mgs): 160 Complications: none Patient Tolerated Procedure: well Medical Decision Making - Medical Decision Making Was pt. sent in by a medical professional or institution (EMILY Elizabeth, WINDMILL TECHNICIAN, urgent care, hospital, or [facility]...) When possible be specific @ -No Did you speak to anyone other than the patient for history (EMS, parent, family, police, friend...)? What history was obtained from this source @ -No Did you review nursing and triage notes (agree or disagree)? Why? @ -I reviewed and agree with nursing and triage notes Were old charts reviewed (outside hosp., previous admission, EMS record, old EKG, old radiological studies, urgent care reports/EKG's, [facility] records)? Report findings @ -Prior operative notes were reviewed for left hip replacement Differential Diagnosis (chest pain, altered mental status, abdominal pain women, abdominal pain men, vaginal bleeding, musculoskeletal, weakness, fever, dyspnea, syncope, headache, dizziness, GI bleed, back pain, seizure, CVA, palpatations, mental health)? @ -Hip fracture, hip dislocation, malposition hardware EKG interpreted by me (3pts min.). @ -None done X-rays interpreted by me (1pt min.). @ -left hip x-ray shows distal to left hip. Postreduction hip x-ray shows good placement CT interpreted by me (1pt min.). @ -None done U/S interpreted by me (1pt. min.). @ -None done What testing was considered but not performed or refused? (CT, X-rays, U/S, labs)? Why? @ -None What meds were considered but not given or refused? Why? @ -None Did you discuss the management of the patient with other professionals (professionals i.e. , PA, WINDMILL TECHNICIAN, lab, RT, psych nurse, manager social responsibility, denture waxer, teacher, ict help desk officer, window caser)? Give summary @ -Discussed with orthopedic surgeon, Dr. Lu was where patient and recommended admission Was smoking cessation discussed for >3mins.? @ -No Was critical care preformed (if so, how long)? @ -No Were there social determinants of health that impacted care today? How? (Homelessness, low income, unemployed, alcoholism, drug addiction, transportation, low edu. Level, literacy, decrease access to med. care, [facility], rehab)? @ -No Was there de-escalation of care discussed even if they declined (Discuss DNR or withdrawal of care, Hospice)? DNR status @ -No What co-morbidities impacted this encounter? (DM, HTN, Smoking, COPD, CAD, Cancer, CVA, ARF, Chemo, Hep., AIDS, mental health diagnosis, sleep apnea, mor bid obesity)? @ -None Was patient admitted / discharged? Hospital course, mention meds given and route, prescriptions, significant lab abnormalities, going to OR and other pertinent info. @ -71 Year-old female presents with her second hip dislocation and 48 hours. Vital signs stable. Hip was reduced. Case is discussed with orthopedic surgery who recommended admission. Undiagnosed new problem with uncertain prognosis? @ -No Drug Therapy requiring intensive monitoring for toxicity (Heparin, Nitro, Insulin, Cardizem)? @ -No Were any procedures done? @ -No Diagnosis/symptom? Acute, or Chronic, or Acute on Chronic? Uncomplicated (without systemic symptoms) or Complicated (systemic symptoms)? @ -1. Left hip dislocation, postop left hip total replacement Side effects of treatment? @ -No Exacerbation, Progression, or Severe Exacerbation? @ -No Poses a threat to life or bodily function? How? (Chest pain, USA, [place], pneumonia, PE, COPD, DKA, ARF, appy, cholecystitis, CVA, Diverticulitis, Homicidal, Suicidal, threat to staff... and all critical care pts) @ -yes Disposition Clinical Impression: Hip dislocation, left Disposition: ADMITTED IP TO THIS HOSP Condition: Fair Referrals: Jessica Che DO [Primary Care Provider] - 1-2 days Decision Time: 21:15
[2022-10-16] MEDS ORDERED: MORPHINE SULFATE 4 MG/ML SYRINGE IV STA (20:27)
[2022-10-16] MEDS ORDERED: PROPOFOL 10 MG/ML 20 ML VIAL IV ONE (20:36)
--- NOTE | 2022-10-16 20:37 | XR ---
EXAMINATION TYPE: XR Hip Limited LT DATE OF EXAM: 10/16/2022 8:27 PM INDICATION: Patient age:Female; 71 years old; Reason for study: hip dislocation; PHH. COMPARISON: Left hip radiographs 10/15/2022 TECHNIQUE: The left hip was examined in frontal projection. FINDINGS: Superolateral dislocation of the left hip replacement relative to the acetabulum. Patient i s status post total hip arthroplasty with normal appearance of the acetabular and femoral stem compon ents. No evidence for fracture. Soft tissues are within normal limits. IMPRESSION: Left superolateral hip dislocation. Overall arthroplasty hardware appears intact.
--- NOTE | 2022-10-16 21:08 | XR ---
EXAMINATION TYPE: XR Hip Limited LT DATE OF EXAM: 10/16/2022 8:56 PM INDICATION: Patient age:Female; 71 years old; Reason for study: post reduction; PHH. COMPARISON: Earlier left hip radiograph 10/16/2022, left hip radiographs 10/15/2022, TECHNIQUE: The left hip was examined in frontal projection FINDINGS: Persistent superolateral dislocation of the left hip arthroplasty, no significant interval change in positioning from earlier radiograph. Status post total hip arthroplasty with intact acetabular and fe moral stem components. No acute soft tissue of the maladies. No appreciable fracture. IMPRESSION: Persistent dislocation of the left hip arthroplasty, positioning is relatively unchanged from earlier radiograph.
--- NOTE | 2022-10-16 21:13 | XR ---
EXAMINATION TYPE: XR Hip Limited LT DATE OF EXAM: 10/16/2022 9:07 PM INDICATION: Patient age:Female; 71 years old; Reason for study: post reduction; PHH. COMPARISON: Earlier hip radiographs 10/16/2022, hip radiographs 10/15/2022 TECHNIQUE: The left hip was examined in frontal projection FINDINGS: Persistent superolateral dislocation of the left hip arthroplasty, minimally increased late ral dislocation when compared to earlier radiographs. Status post total left hip arthroplasty with in tact acetabular and femoral stem components. Hypertrophic calcifications of the posterior acetabulum. No discrete evidence for fracture. IMPRESSION: Persistent dislocation of the left hip arthroplasty.
[2022-10-16] MEDS ORDERED: HYDROmorphone 1 MG/ML 1 ML SYRINGE IVP STA (21:20)
[2022-10-16] MEDS ORDERED: ACETAMINOPHEN TAB 325 MG TAB PO PRN (21:21)
[2022-10-16] MEDS ORDERED: NALOXONE 0.4 MG/ML 1 ML VIAL IV PRN (21:21)
--- NOTE | 2022-10-16 21:32 | XR ---
EXAMINATION TYPE: XR Hip Limited LT DATE OF EXAM: 10/16/2022 9:15 PM INDICATION: Patient age:Female; 71 years old; Reason for study: post reduction; PHH. COMPARISON: Earlier hip radiographs 10/16/2022, left hip radiograph 10/10/2022, left hip radiograph 023, fluoroscopic images 10/10/2022 TECHNIQUE: The left hip was examined in frontal projection. FINDINGS: Successful interval reduction in left hip arthroplasty. Left total hip arthroplasty with in tact acetabular and femoral stem components. Hypertrophic calcifications posterior to the acetabulum. No evidence for displaced fracture. Soft tissues are within normal limits. IMPRESSION: Intervally reduced left hip dislocation.
[2022-10-16 21:57] LABS: Basophils % (A) 0 %; Eosinophils # (A) 0.1 k/uL (0-0.7); Eosinophils % (A) 2 %; HCT 28.1 % (34.0-46.0); HGB 9.3 gm/dL (11.4-16.0); Lymphocytes # (A) 1.9 k/uL (1.0-4.8); Lymphocytes % (A) 22 %; MCH 32.1 pg (25.0-35.0); MCHC 33.3 g/dL (31.0-37.0); MCV 96.5 fL (80.0-100.0); Mean Platelet Volume 7.4; Monocytes # (A) 1.1 k/uL (0-1.0); Monocytes % (A) 13 %; Neutrophils % (A) 58 %; Platelet Count 428 k/uL (150-450); RBC 2.91 m/uL (3.80-5.40); RDW 13.3 % (11.5-15.5); WBC 8.7 k/uL (3.8-10.6)
[2022-10-16 22:07] LABS: African American GFR (CKD) >90 (>60 ml/min/1.73 sqM); Anion Gap 13 mmol/L; Blood Urea Nitrogen 23 mg/dL (7-17); Calcium 8.5 mg/dL (8.4-10.2); Carbon Dioxide 21 mmol/L (22-30); Chloride 106 mmol/L (98-107); Glucose 110 mg/dL (74-99); Non-African American GFR(CKD) 79 (>60 ml/min/1.73 sqM); Potassium 4.2 mmol/L (3.5-5.1); Sodium 140 mmol/L (137-145)
[2022-10-16] MEDS: SODIUM CHLORIDE 0.9% 1,000 ML IV SCH (22:35)
[2022-10-17] MEDS ORDERED: SENNOSIDES-DOCUSATE SODIUM 1 EACH TAB PO PRN (00:14)
[2022-10-17] MEDS: HYDROmorphone 1 MG/ML 1 ML SYRINGE IVP PRN ×7 (00:33→22:05)
[2022-10-17] MEDS ORDERED: LEVOTHYROXINE 50 MCG TAB PO SCH (06:30)
[2022-10-17] MEDS ORDERED: BISOPROLOL 5 MG TAB PO SCH (09:00)
[2022-10-17] MEDS ORDERED: lisinopriL 20 MG TAB PO SCH (09:00)
[2022-10-17] MEDS ORDERED: traMADol 50 MG TAB PO PRN (09:43)
[2022-10-17] MEDS ORDERED: polyethylene glycoL 3350 17 GM POWD.PACK PO SCH ×2 (09:45→22:00)
[2022-10-17] MEDS ORDERED: PANTOPRAZOLE 40 MG/10 ML VIAL IVP SCH (11:00)
--- NOTE | 2022-10-17 12:00 | P.HPOR ---
History of Present Illness H&P Date: 10/17/22 Chief Complaint: Recurrent left hip periprosthetic dislocation Patient is a 71-year-old female who was admitted to [facility] on 10/16/2022. Patient underwent a direct anterior total hip arthroplasty by Dr. Lu 10/10/2022. Patient did very well postoperatively was sent home on 10/11/2022. She had been utilizing her home exercises along with home p hysical therapy. She states on 10/14/2022 she was sitting on a step talking on her phone, she then tried to stand up and she felt immediate pain and deformity in the left lower extremity. Family was available to attempt to assist the patient, she was unable to weight-bear. Patient was then brought to the hospital by EMS, imaging test at [facility] demonstrated a periprosthetic left hip dislocation. The ER staff was able to relocate the hip after sedation. Patient was sent home in stable condition. On 10/16/2022, patient was sitting in a chair, when she attempted to get up she felt the hip dislocated once again. She was brought back to the hospital by EMS, imaging test Confirmed the periprosthetic dislocation. Relocation was then again done by the ER staff. Patient was then admitted to [facility] under our care for further evaluation. Medicine was also consulted. Patient was evaluated today at bedside, her daughter was present. She's having discomfort in the left hip region as would be expected. She hasn't been up and ambulate in at this time. She admits to not having a bowel movement in over a week. Since being in the hospital, she is 1 unable to urinate. She did undergo a straight cath earlier this morning, there is about 1000 mL of urine. Try avoiding later today. Patient was made nothing by mouth after being admitted to the hospital. She's having no other orthopedic complaints at this time. She denies any recent medical events. Review of Systems Constitutional: Reports as per HPI Past Medical History Past Medical History: Cancer, Hypertension Additional Past Medical History / Comment(s): DDD, chronic back pain, constipation,basal cell on forehead History of Any Multi-Drug Resistant Organisms: None Reported Past Surgical History: Back Surgery, Breast Surgery, Section, Joint Replacement Additional Past Surgical History / Comment(s): L breast biopsies X2 AND LUMPECTOMIES. PREVIOUS BACK SURGERY x2- laminectomy, 2014 decompression, L4-5 fusion and mesh inserted, Total hip replacement of right . 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 HE HAD HX ALSO OF ETOH ABUSE AND SMOKING. Mother Family Medical History: Hypertension Additional Family Medical History / Comment(s): MOTHER AT AGE 90 YRS. Brother(s) Family Medical History: Cancer Additional Family Medical History / Comment(s): Brain cancer, . Medications and Allergies Home Medications Medication Instructions Recorded Confirmed Type Alendronate Sodium 70 mg PO ANGELES 06/02/15 10/16/22 History Cyanocobalamin [Vitamin B-12] 500 mcg PO MOTH 06/02/15 10/16/22 History Fish Oil/Dha/Epa [Fish Oil 1,200 1 cap PO DAILY 06/02/15 10/16/22 History mg Fish Oil] Levothyroxine Sodium [Synthroid] 50 mcg PO DAILY 06/10/20 10/16/22 History amLODIPine [Norvasc] 5 mg PO HS 06/10/20 10/16/22 History lisinopriL [Zestril] 40 mg PO DAILY 06/10/20 10/16/22 History Meloxicam [Mobic] 7.5 mg PO DAILY PRN 03/03/21 10/16/22 History Acetaminophen [Tylenol Extra 500 mg PO DIRECTED PRN 10/04/22 10/16/22 History Strength] Bisoprolol Fumarate 5 mg PO DAILY 10/04/22 10/16/22 History Calcium Carb/Vitamin D3/Vit K1 2 tab PO DAILY 10/04/22 10/16/22 History [Viactiv 650 mg-12.5 Mcg Chew] [employer] Am/Pm Allergy Pill 10 mg PO DAILY 10/04/22 10/16/22 History Multivit with Calcium,Iron,Min 1 tab PO DAILY 10/04/22 10/16/22 History [Women's Multivitamin] Aspirin [Adult Low Dose Aspirin EC] 81 mg PO BID #60 tab 10/11/22 10/16/22 Rx traMADol HCl [Ultram] 50 mg PO Q6H PRN #28 tab 10/11/22 10/16/22 Rx Sennosides/Docusate Sodium 2 tab PO DAILY PRN 10/16/22 10/16/22 History [Senna-S 8.6-50 mg Tablet] Allergies Allergy/AdvReac Type Severity Reaction Status Date / Time Penicillins Allergy Severe Rash/Hives Verified 10/16/22 20:35 acetaminophen [From [place]] AdvReac Extreme Verified 10/16/22 20:35 fatigue hydrocodone [From [place]] AdvReac Extreme Verified 10/16/22 20:35 fatigue Physical Examination Left lower extremity: No obvious open lesions or sores are visualized throughout the extremity, there is mild soft tissue swelling in the anterior thigh. Silver foam dressing is in good position and condition, there is no obvious drainage Mild tenderness with palpation of the proximal thigh both anterior and laterally. Logroll maneuver reproduces no significant pain of the hip. She is nontender with palpation surrounding the lower leg, knee, foot or ankle Flexion and extension are intact at the knee, plantar flexion, dorsiflexion, EHL, FHL are intact Calf is soft, no tenderness with palpation Sensory exam to light touch is intact throughout the extremity, dorsalis pedis pulses 2+ Results - Labs Labs: Abnormal Lab Results - Last 24 Hours (Table) 10/16/22 10/16/22 Range/Units 21:42 21:42 RBC 2.91 L (3.80-5.40) m/uL Hgb 9.3 L (11.4-16.0) gm/dL Hct 28.1 L (34.0-46.0) % Monocytes # 1.1 H (0-1.0) k/uL Carbon Dioxide 21 L (22-30) mmol/L BUN 23 H (7-17) mg/dL Glucose 110 H (74-99) mg/dL H & H 10/16/22 Range/Units 21:42 Hgb 9.3 L (11.4-16.0) gm/dL Hct 28.1 L (34.0-46.0) % Result Diagrams: 10/16/22 21:42 10/16/22 21:42 - Diagnostic results Hip x-ray: report reviewed, image reviewed Assessment and Plan Assessment: Recurrent left hip periprosthetic dislocation History of recent direct anterior left total hip arthroplasty, 10/10/2022 Urinary retention Constipation Other medical comorbidities Plan: Imaging: Multiple x-rays were reviewed from 10/14/2022 and 10/16/2022. Images demonstrated both dislocated and postreduction films. No obvious lucencies appreciated surrounding the acetabular component or femoral stem component. No obvious malalignment of the acetabular stem component is noted. No fractures are demonstrated throughout the osseous structures. Plan: Dr. Lu was available today to discuss with the patient and family options for treatment. Taking into consideration the minimal activity that caused the two separate dislocations, we are recommending orthopedic surgical intervention for a revision surgery of her left hip. Due to the complexity of this case we are recommending transfer to tertiary care facility for further evaluation and treatment. I have spoken with Dr. Macario Ponce foam [facility] regarding this case, he is willing to accept the transfer of this patient. Transfer process has been started with [facility]'s transfer team Pending try voiding later today, recommending placement of a urinary catheter with urology consult once transfered to [facility] Continue multiple stool softeners to help with constipation Pain control, continue tramadol as needed, utilize Tylenol as needed DVT prophylaxis, patient was utilizing aspirin 81 mg twice a day, will utilize subcu medication during hospital stay Please contact our service any questions regarding this patient Time with Patient: Less than 30
[2022-10-17] MEDS ORDERED: TAMSULOSIN 0.4 MG CAP.ER.24H PO SCH (12:45)
[2022-10-17] MEDS ORDERED: ENOXAPARIN 40 MG/0.4 ML SYRINGE SQ SCH (13:00)
--- NOTE | 2022-10-17 14:45 | P.CONS ---
History of Present Illness - Reason for Consult Consult date: 10/17/22 Medical management hypertension, hypothyroidism Requesting physician: Carter Lu - Chief Complaint Recurrent left hip dislocation status post recent surgery - History of Present Illness This is 71-year-old female with recent direct anterior total hip arthroplasty on 10/10/2022, discharged home on 10/11/2022, admitted with recurrent left hip dislocations 2. Her initial event 10/14/22 she was sitting on the second step, talking on the phone, attempted to stand up, felt immediate pain of the left lower extremity, fell back onto step-states minimal distance between her hip and the fall back onto the steps. Patient was brought into the ER, radiology studies reported left hip dislocation, ER relocated the hip. Her second event 10/16/22 she was sitting up in a chair, reached forward to grab something at which time she felt her left hip popped out of place. Returned to the ER , radiology studies reported left superiolateral hip dislocation, hip reduced in the ER. Denies any numbness or tingling of the left lower extremity. Patient also reports no bowel movement since one week ago- last Monday in addition to having difficulty voiding. Initially bladder scanned /straight cath-for 1000 MLS. Denies any chest pain, palpitations or shortness of breath. Denies any lightheadedness dizziness or syncope. Denies any nausea, vomiting. Afebrile, normal WBC, hemoglobin 9.3, platelets 428, bicarb 21, BUN 23, creatinine 0.76. Review of Systems ROS Statement: Those systems with pertinent positive or pertinent negative responses have been documented in the HPI. ROS Other: All systems not noted in ROS Statement are negative. Past Medical History Past Medical History: Cancer, Hypertension Additional Past Medical History / Comment(s): DDD, chronic back pain, constipation,basal cell on forehead History of Any Multi-Drug Resistant Organisms: None Reported Past Surgical History: Back Surgery, Breast Surgery, Section, Joint Replacement Additional Past Surgical History / Comment(s): L breast biopsies X2 AND LUMPECTOMIES. PREVIOUS BACK SURGERY x2- laminectomy, 2014 decompression, L4-5 fusion and mesh inserted, Total hip replacement of right . EYELID SX, DENTAL IMPLANTS ,PAIN CLINIC PROCEDURES, removal of basal cell skin cancer from fo rehead currently has 7 stiches Past Anesthesia/Blood Transfusion Reactions: No Reported Reaction Past Psychological History: No Psychological Hx Reported Smoking Status: Never smoker Past Alcohol Use History: Rare Past Drug Use History: None Reported - Past Family History Father Family Medical History: CVA/TIA, Hypertension Additional Family Medical History / Comment(s): FATHER AT AGE 72. HE HAD HX ALSO OF ETOH ABUSE AND SMOKING. Mother Family Medical History: Hypertension Additional Family Medical History / Comment(s): MOTHER AT AGE 90 YRS. Brother(s) Family Medical History: Cancer Additional Family Medical History / Comment(s): Brain cancer, . Medications and Allergies Home Medications Medication Instructions Recorded Confirmed Type Alendronate Sodium 70 mg PO ANGELES 06/02/15 10/16/22 History Cyanocobalamin [Vitamin B-12] 500 mcg PO MOTH 06/02/15 10/16/22 History Fish Oil/Dha/Epa [Fish Oil 1,200 1 cap PO DAILY 06/02/15 10/16/22 History mg Fish Oil] Levothyroxine Sodium [Synthroid] 50 mcg PO DAILY 06/10/20 10/16/22 History amLODIPine [Norvasc] 5 mg PO HS 06/10/20 10/16/22 History lisinopriL [Zestril] 40 mg PO DAILY 06/10/20 10/16/22 History Meloxicam [Mobic] 7.5 mg PO DAILY PRN 03/03/21 10/16/22 History Acetaminophen [Tylenol Extra 500 mg PO DIRECTED PRN 10/04/22 10/16/22 History Strength] Bisoprolol Fumarate 5 mg PO DAILY 10/04/22 10/16/22 History Calcium Carb/Vitamin D3/Vit K1 2 tab PO DAILY 10/04/22 10/16/22 History [Viactiv 650 mg-12.5 Mcg Chew] [employer] Am/Pm Allergy Pill 10 mg PO DAILY 10/04/22 10/16/22 History Multivit with Calcium,Iron,Min 1 tab PO DAILY 10/04/22 10/16/22 History [Women's Multivitamin] Aspirin [Adult Low Dose Aspirin EC] 81 mg PO BID #60 tab 10/11/22 10/16/22 Rx traMADol HCl [Ultram] 50 mg PO Q6H PRN #28 tab 10/11/22 10/16/22 Rx Sennosides/Docusate Sodium 2 tab PO DAILY PRN 10/16/22 10/16/22 History [Senna-S 8.6-50 mg Tablet] Allergies Allergy/AdvReac Type Severity Reaction Status Date / Time Penicillins Allergy Severe Rash/Hives Verified 10/16/22 20:35 acetaminophen [From [place]] AdvReac Extreme Verified 10/16/22 20:35 fatigue hydrocodone [From [place]] AdvReac Extreme Verified 10/16/22 20:35 fatigue Physical Exam Vitals: Vital Signs Temp Pulse Pulse Resp BP BP Pulse Ox 10/17/22 07:39 98.3 F 83 14 136/67 100 10/17/22 00:30 98.2 F 80 18 132/65 98 10/16/22 22:45 98.5 F 87 18 172/74 98 10/16/22 21:30 90 20 179/86 98 10/16/22 21:20 20 10/16/22 21:00 82 18 154/79 95 10/16/22 20:08 98.2 F 89 20 157/102 100 Intake and Output 10/16/22 10/17/22 10/17/22 22:59 06:59 14:59 Output Total 1180 Balance -1180 Output: Urine 1180 Straight 1080 Other: Weight 65.771 kg PHYSICAL EXAM: VITAL SIGNS: [As above] GENERAL: Sitting up in bed, no acute distress, HEENT: Normocephalic, atraumatic ,Conjunctivae normal. eyes normal. NECK: Supple, No JVD. No thyroid enlargement. No LNs CARDIOVASCULAR: S1, S2 regular..No murmur RESPIRATION: Unlabored, equal air entry, Breath sounds diminished in the bases. No rhonchi or crackles. ABDOMEN: Soft, nontender . No guarding. no masses palpable. +Bowel sounds heard. LEGS: Left lower extremity, positive edema, positive tenderness of left thigh. PSYCHIATRY: Alert and oriented X3, mood and affect normal. NERVOUS SYSTEM: Cranial N 2-12 grossly normal. No focal deficits. Strength and sensation grossly intact. Skin: Warm and dry, no rash Results CBC & Chem 7: 10/16/22 21:42 10/16/22 21:42 Labs: Abnormal Lab Results - Last 24 Hours (Table) 10/16/22 10/16/22 Range/Units 21:42 21:42 RBC 2.91 L (3.80-5.40) m/uL Hgb 9.3 L (11.4-16.0) gm/dL Hct 28.1 L (34.0-46.0) % Monocytes # 1.1 H (0-1.0) k/uL Carbon Dioxide 21 L (22-30) mmol/L BUN 23 H (7-17) mg/dL Glucose 110 H (74-99) mg/dL Assessment and Plan Assessment: Recurrent dislocation, in a patient with history of left hip osteoarthritis , recent direct anterior left total hip arthroplasty on 10/10/2022 Urinary retention Constipation Hypertension Hyperlipidemia Degenerative disc disease, chronic back pain Osteoarthritis, history of total right hip replacement Plan: Continue on current medication regime ,monitoring and symptomatic treatment. Bladder scanning every 8hrs and post void, Flomax added to med regimen. UA/culture ordered. Urology consulted. MiraLAX added to med regimen. Pain management/DVT prophylaxis as per primary. Orthopedic surgery recommending orthopedic surgical intervention for revision surgery of her left hip with transfer to tertiary care center secondary to complexity. Transfer has been initiated with [facility]. The impression and plan of care has been dictated as directed. : I performed a history and examination of this patient, discussed the same with the dictator. I agree with the dictator's note ,documented as a scribe. Any additional findings or plans will be noted.
[2022-10-17 16:23] LABS: Appearance,Urine Clear (Clear); Bilirubin,Urine Negative (Negative); Blood,Urine Negative (Negative); Color,Urine Yellow; Glucose,Urine (UA) Negative (Negative); Ketones,Urine Negative (Negative); Leukocyte Esterase,Urine Negative (Negative); Nitrite,Urine Negative (Negative); Protein,Urine Negative (Negative); Specific Gravity,Urine 1.018 (1.001-1.035); Urobilinogen,Urine <2.0 mg/dL (<2.0)
--- NOTE | 2022-10-17 17:14 | P.GSCN ---
History of Present Illness Consult date: 10/17/22 History of present illness: Pleasant 73 yo female in the hospital for left hip dislocation 2 post left hip arthroplasty 10/10/2022. We are asked to see the patient for post operative urine retention. The patient had a relatively uneventful postoperative course from her left hip but at home had 2 episodes of hip dislocation. She had problems urinating as well as constipation postoperatively. The nursing staff had to straight catheter and then replace the catheter for urine retention. Urologically the patient did have some urgency almost to the point of incontin ence preoperatively however she has had a bad back and multiple surgeries for that. She has no overflow incontinence history no urologic history no hematuria recurrent urine infections. She has an indwelling catheter at this point in time with clear urine. Review of Systems All systems: negative - Constitutional Denies fever, Denies weight loss - EENT Eyes: denies blurred vision Ears, nose, mouth and throat: Denies dysphagia - Cardiovascular Denies chest pain, Denies shortness of breath - Respiratory Denies cough, Denies 7 - Gastrointestinal Reports as per HPI - Genitourinary Genitourinary: Denies dysuria, Denies hematuria - Integumentary Denies rash, Denies unusual bruising - Neurological Denies headaches, Denies syncope - Hematologic/Lymphatic Denies easy bleeding, Denies easy bruising Past Medical History Past Medical History: Cancer, Hypertension Additional Past Medical History / Comment(s): DDD, chronic back pain, constipation,basal cell on forehead History of Any Multi-Drug Resistant Organisms: None Reported Past Surgical History: Back Surgery, Breast Surgery, Section, Joint Replacement Additional Past Surgical History / Comment(s): L breast biopsies X2 AND LUMPECTOMIES. PREVIOUS BACK SURGERY x2- laminectomy, 2014 decompression, L4-5 fusion and mesh inserted, Total hip replacement of right . 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 HE HAD HX ALSO OF ETOH ABUSE AND SMOKING. Mother Family Medical History: Hypertension Additional Family Medical History / Comment(s): MOTHER AT AGE 90 YRS. Brother(s) Family Medical History: Cancer Additional Family Medical History / Comment(s): Brain cancer, . Medications and Allergies Home Medications Medication Instructions Recorded Confirmed Type Alendronate Sodium 70 mg PO ANGELES 06/02/15 10/16/22 History Cyanocobalamin [Vitamin B-12] 500 mcg PO MOTH 06/02/15 10/16/22 History Fish Oil/Dha/Epa [Fish Oil 1,200 1 cap PO DAILY 06/02/15 10/16/22 History mg Fish Oil] Levothyroxine Sodium [Synthroid] 50 mcg PO DAILY 06/10/20 10/16/22 History amLODIPine [Norvasc] 5 mg PO HS 06/10/20 10/16/22 History lisinopriL [Zestril] 40 mg PO DAILY 06/10/20 10/16/22 History Meloxicam [Mobic] 7.5 mg PO DAILY PRN 03/03/21 10/16/22 History Acetaminophen [Tylenol Extra 500 mg PO DIRECTED PRN 10/04/22 10/16/22 History Strength] Bisoprolol Fumarate 5 mg PO DAILY 10/04/22 10/16/22 History Calcium Carb/Vitamin D3/Vit K1 2 tab PO DAILY 10/04/22 10/16/22 History [Viactiv 650 mg-12.5 Mcg Chew] [employer] Am/Pm Allergy Pill 10 mg PO DAILY 10/04/22 10/16/22 History Multivit with Calcium,Iron,Min 1 tab PO DAILY 10/04/22 10/16/22 History [Women's Multivitamin] Aspirin [Adult Low Dose Aspirin EC] 81 mg PO BID #60 tab 10/11/22 10/16/22 Rx traMADol HCl [Ultram] 50 mg PO Q6H PRN #28 tab 10/11/22 10/16/22 Rx Sennosides/Docusate Sodium 2 tab PO DAILY PRN 10/16/22 10/16/22 History [Senna-S 8.6-50 mg Tablet] Allergies Allergy/AdvReac Type Severity Reaction Status Date / Time Penicillins Allergy Severe Rash/Hives Verified 10/16/22 20:35 acetaminophen [From [place]] AdvReac Extreme Verified 10/16/22 20:35 fatigue hydrocodone [From [place]] AdvReac Extreme Verified 10/16/22 20:35 fatigue Surgical - Exam Vital Signs Temp Pulse Resp BP Pulse Ox 98.2 F 89 20 157/102 100 10/16/22 20:08 10/16/22 20:08 10/16/22 20:08 10/16/22 20:08 10/16/22 20:08 - General well developed, well nourished, no distress - Eyes normal ocular movement, no icteric - ENT no hearing loss, no congestion - Neck no masses, trachea midline - Respiratory normal respiratory effort, clear to auscultation - Abdomen Abdomen: soft, non tender, no guarding, no rigid, no rebound - Genitourinary Indwelling catheter with clear urine. - Integumentary no rash, no abnormal pigmentation - Neurologic no disoriented, no combative - Musculoskeletal Recent left hip arthroplasty - Psychiatric oriented to time, oriented to person, oriented to place, speech is normal, memory intact Results - Labs 10/16/22 21:42 10/16/22 21:42 Abnormal Lab Results - Last 24 Hours (Table) 10/16/22 10/16/22 Range/Units 21:42 21:42 RBC 2.91 L (3.80-5.40) m/uL Hgb 9.3 L (11.4-16.0) gm/dL Hct 28.1 L (34.0-46.0) % Monocytes # 1.1 H (0-1.0) k/uL Carbon Dioxide 21 L (22-30) mmol/L BUN 23 H (7-17) mg/dL Glucose 110 H (74-99) mg/dL Diabetes panel 10/16/22 Range/Units 21:42 Sodium 140 (137-145) mmol/L Potassium 4.2 (3.5-5.1) mmol/L Chloride 106 (98-107) mmol/L Carbon Dioxide 21 L (22-30) mmol/L BUN 23 H (7-17) mg/dL Creatinine 0.76 (0.52-1.04) mg/dL Glucose 110 H (74-99) mg/dL Calcium 8.5 (8.4-10.2) mg/dL Calcium panel 10/16/22 Range/Units 21:42 Calcium 8.5 (8.4-10.2) mg/dL Pituitary panel 05/07/23 Range/Units 21:42 Sodium 140 (137-145) mmol/L Potassium 4.2 (3.5-5.1) mmol/L Chloride 106 (98-107) mmol/L Carbon Dioxide 21 L (22-30) mmol/L BUN 23 H (7-17) mg/dL Creatinine 0.76 (0.52-1.04) mg/dL Glucose 110 H (74-99) mg/dL Calcium 8.5 (8.4-10.2) mg/dL Adrenal panel 10/16/22 Range/Units 21:42 Sodium 140 (137-145) mmol/L Potassium 4.2 (3.5-5.1) mmol/L Chloride 106 (98-107) mmol/L Carbon Dioxide 21 L (22-30) mmol/L BUN 23 H (7-17) mg/dL Creatinine 0.76 (0.52-1.04) mg/dL Glucose 110 H (74-99) mg/dL Calcium 8.5 (8.4-10.2) mg/dL Assessment and Plan Assessment: Impression: Status post left hip arthroplasty with recurrent dislocation. Postoperative constipation. Postoperative urine retention. History of back issues with multiple laminectomies. History of right hip arthroplasty Recommendations: From what I can understand the patient will be transferred to [facility] for a secondary repair to this left hip due to the complicated nature. The urine retention is not surprising given the difficulty she's had including pain and immobility. I'm sure the bladder has overdistended and due to the immobility and pain as well as the constipation makes it difficult to urinate. I recommend leaving the [place] catheter indwelling in the process of transfer until she her hip is secondarily repaired and she is ambulatory again. If she still has urine retention issues upon discharge from her secondary repair be glad to assist in this. This is been discussed at length with patient and she understands.
[2022-10-17] MEDS ORDERED: amLODIPine 5 MG TAB PO SCH (21:00)
[2022-10-17] MEDS: SODIUM CHLORIDE 0.9% 1,000 ML IV SCH (22:55)
[2022-10-18] MEDS: HYDROmorphone 1 MG/ML 1 ML SYRINGE IVP PRN (02:42)
[2022-10-18 03:38] VITALS: BP 126/64; PULSE 97; RESP 18; TEMP 98.9
[2022-10-23] MEDS ORDERED: NON FORMULARY DRUG (Alendronate Sodium [Alendronate Sodium] 70 MG Tablet) PO SCH (09:00)
== END 2022-10-18 05:53 | disposition other institution (70) ==
LOC: EC 20:02 → 4SSUR 21:22
PROVIDERS: ADMIT Orthopaedic Surgery; ATTEND Orthopaedic Surgery
DX: T84.021A Dislocation of internal left hip prosthesis, initial encounter (principal); K91.89 Other postprocedural complications and disorders of digestive system; K59.00 Constipation, unspecified; N99.89 Other postprocedural complications and disorders of genitourinary system; R33.9 Retention of urine, unspecified; Y79.2 Prosthetic and other implants, materials and accessory orthopedic devices associated with adverse incidents; I10 Essential (primary) hypertension; E03.9 Hypothyroidism, unspecified; G89.29 Other chronic pain; M54.9 Dorsalgia, unspecified; M16.12 Unilateral primary osteoarthritis, left hip; E78.5 Hyperlipidemia, unspecified; Z79.82 Long term (current) use of aspirin; Z79.890 Hormone replacement therapy; Z79.1 Long term (current) use of non-steroidal anti-inflammatories (NSAID); Z79.899 Other long term (current) drug therapy; Z88.0 Allergy status to penicillin; Z88.5 Allergy status to narcotic agent; Z88.6 Allergy status to analgesic agent; Z85.828 Personal history of other malignant neoplasm of skin; Z98.1 Arthrodesis status; Z96.5 Presence of tooth-root and mandibular implants; Z96.643 Presence of artificial hip joint, bilateral; Z98.890 Other specified postprocedural states; Z82.49 Family history of ischemic heart disease and other diseases of the circulatory system; Z82.3 Family history of stroke; Z80.8 Family history of malignant neoplasm of other organs or systems; Z81.1 Family history of alcohol abuse and dependence; Z81.2 Family history of tobacco abuse and dependence
CPT/HCPCS: 99285; 27265; 99152; 80048; 85025; 81003; 87635; 73501; G0378 ×3; J2270; J1650; J1170 ×3; J2704; C9113

== ENCOUNTER → 2023-04-12 | Outpatient (CLI) | payer MEDICARE ==
--- NOTE | 2023-04-12 13:38 | MM ---
Reason for Exam: Screening (asymptomatic). Last mammogram was performed 1 year(s) and 4 month(s) ago. Patient History: Menarche at age 12. First Full-Term at age 26. Postmenopausal. Patient has history of breast feeding. Estrogen for 12 years from age 51 until age 63. Progesterone for 12 years from age 51 until age 63. 10/02/2006, Benign Excisional Biopsy on the left side. Cyst Aspiration on the Right side. Cyst Aspiration on the Right side. Cyst Aspiration on the Left side. 06/15/2016, Benign Core Biopsy on the left side. 04/30/2002, Ultrasound-Guided Core Biopsy on the Left side. 06/02/2000, Benign Excisional Biopsy on the left side. Paternal cousin (maisha) had breast cancer, age 35. Risk Values: Maryann 5 year model risk: 2.7%. NCI Lifetime model risk: 6.2%. Prior Study Comparison: 11/28/2019 Left Diagnostic Mammogram, [facility]. 12/21/2020 Bilateral Screening Mammogram, [facility]. 12/28/2021 Bilateral MG 3D screening mammo w/cad, [facility]. Tissue Density: The breast tissue is heterogeneously dense. This may lower the sensitivity of mammography. Findings: Analyzed By CAD. Left breast biopsy clip. There is no suspicious group of microcalcifications or new suspicious mass. Overall Assessment: Negative, BI-RAD 1 Management: Screening Mammogram of both breasts in [address] [facility] will attempt to contact patient to return for supplemental views and ultrasound if indicated. Patient should continue monthly self-breast exams. A clinical breast exam by your physician is recommended on an annual basis. This exam should not preclude additional follow-up of suspicious palpable abnormalities. Note on Maryann scores and lifetime risk: 1. A Maryann score greater than 3% is considered moderate risk. If this is the case, consider specialist referral to assess eligibility for a risk reducing agent. 2. If overall lifetime risk for the development of breast cancer is 20% or higher, the patient may qualify for future screening with alternating mammogram and breast MRI. Electronically signed and approved by: Rober Isaacs DO
== END | disposition home or self-care (01) ==
LOC: RADMAMWWP 12:44
PROVIDERS: ATTEND Family Medicine
DX: Z12.31 Encounter for screening mammogram for malignant neoplasm of breast (principal); Z78.0 Asymptomatic menopausal state; Z80.3 Family history of malignant neoplasm of breast
CPT/HCPCS: 77063; 77067

== ENCOUNTER → 2024-04-22 | Outpatient (CLI) | payer MEDICARE ==
--- NOTE | 2024-04-26 13:06 | MM ---
Reason for Exam: Screening (asymptomatic). Last screening mammogram was performed 12 month(s) ago. Patient History: Menarche at age 12. First Full-Term at age 26. Postmenopausal. Patient has history of breast feeding. Estrogen for 12 years from age 51 until age 63. Progesterone for 12 years from age 51 until age 63. 10/02/2006, Benign Excisional Biopsy on the left side. Cyst Aspiration on the Right side. Cyst Aspiration on the Right side. Cyst Aspiration on the Left side. 06/15/2016, Benign Core Biopsy on the left side. 04/30/2002, Ultrasound-Guided Core Biopsy on the Left side. 06/02/2000, Benign Excisional Biopsy on the left side. Paternal cousin (maisha) had breast cancer, age 35. Risk Values: Maryann 5 year model risk: 2.7%. NCI Lifetime model risk: 5.8%. Prior Study Comparison: 12/21/2020 Bilateral Screening Mammogram, [facility]. 12/28/2021 Bilateral MG 3D screening mammo w/cad, [facility]. 04/12/2023 Bilateral MG 3D screening mammo w/cad, [facility]. Tissue Density: The breasts are heterogeneously dense, which may obscure small masses. Findings: Analyzed By CAD. Left breast biopsy clip. Right breast: There is no suspicious group of microcalcifications or new suspicious mass. Benign-appearing calcifications right breast. Left breast: There is no suspicious group of microcalcifications or new suspicious mass. Benign-appearing calcifications left breast. Overall Assessment: Benign, BI-RAD 2 Management: Screening Mammogram of both breasts in [address] [facility] will attempt to contact patient to return for supplemental views and ultrasound if indicated. Patient should continue monthly self-breast exams. A clinical breast exam by your physician is recommended on an annual basis. This exam should not preclude additional follow-up of suspicious palpable abnormalities. Note on Maryann scores and lifetime risk: 1. A Maryann score greater than 3% is considered moderate risk. If this is the case, consider specialist referral to assess eligibility for a risk reducing agent. 2. If overall lifetime risk for the development of breast cancer is 20% or higher, the patient may qualify for future screening with alternating mammogram and breast MRI. [facility], , 04/26/2024 1:02 PM. Electronically signed and approved by: Rober Isaacs DO
== END | disposition home or self-care (01) ==
LOC: RADMAMWWP 11:18
PROVIDERS: ATTEND Family Medicine
DX: Z12.31 Encounter for screening mammogram for malignant neoplasm of breast (principal); R92.333 Mammographic heterogeneous density, bilateral breasts; Z78.0 Asymptomatic menopausal state
CPT/HCPCS: 77063; 77067